=== PATIENT | male | born 1945 | race Caucasian/White ===

== ENCOUNTER → 2023-12-01 10:32 | Outpatient (REF) | payer MEDICARE, OTHER, SELFPAY | LOC: RAD 10:32 | PROVIDERS: ATTENDING PHYSICIAN Family Medicine | DX: U07.1 COVID-19 (principal) | CPT/HCPCS: 71046 ==

== ENCOUNTER → 2024-03-01 06:50 | Outpatient (REF) | payer MEDICARE, OTHER, SELFPAY | LOC: RAD 06:50 | PROVIDERS: ATTENDING PHYSICIAN Internal Medicine Cardiovascular Disease; FAMILY PHYSICIAN Family Medicine | DX: I48.0 Paroxysmal atrial fibrillation (principal); I70.0 Atherosclerosis of aorta | CPT/HCPCS: 76770 ==

== ENCOUNTER → 2024-03-10 07:40 | Outpatient (REF) | payer MEDICARE, OTHER, SELFPAY ==
[2024-03-10 08:41] LABS: % Basophils 1.1 % (0-2); % Eosinophils 4.6 % (0-6); % Immature Granulocytes 0.4 % (0-0.5); % Lymphocytes 16.8 % (20.5-51.1); % Monocytes 9.5 % (1.7-9.3); % Neutrophils 67.6 % (42.2-75.2); Absolute Basophils 0.1 10^3/uL (0-0.2); Absolute Eosinophils 0.5 10^3/uL (0-0.7); Absolute Lymphocytes 1.7 10^3/uL (1.2-3.4); Absolute Monocytes 0.9 10^3/uL (0.1-0.6); Absolute Neutrophils 6.7 10^3/uL (1.4-6.5); Hemoglobin 14.1 g/dL (13.0-18.0); Mean Corp Hgb Conc. 33.6 g/dL (33.0-37.0); Mean Corpuscular Hgb 31.5 pg (27.0-31.0); Mean Corpuscular Volume 93.8 fL (80.0-94.0); Mean Platelet Volume 8.8 fL (7.4-10.4); Nucleated Red Blood Cells % 0 % (-); Platelet Count 283 10^3/uL (130-400); Red Blood Cell Count 4.48 10^6/uL (4.70-6.10); Red Cell Dist. Width 13.2 % (11.5-14.5); White Blood Cell Count 9.9 10^3/uL (4.8-10.8)
[2024-03-10 09:10] LABS: NT-proBNP 6710 pg/ml
[2024-03-10 09:11] LABS: ALT (SGPT) 14 U/L (0-50); AST (SGOT) 23 U/L (17-59); Albumin 4.2 g/dl (3.5-5.0); Alkaline Phosphatase 75 U/L (38-126); Blood Urea Nitrogen 10 mg/dl (9-20); Calcium 9.4 mg/dl (8.4-10.2); Carbon Dioxide 25 mmol/L (22-30); Chloride 103 mmol/L (98-107); Glucose 119 mg/dl (70-99); HDL Cholesterol 43 mg/dl; LDL Cholesterol, Calculated 62 mg/dl; Magnesium 1.5 mg/dl (1.6-2.3); Potassium 4.1 mmol/L (3.5-5.1); Sodium 136 mmol/L (135-145); Total Bilirubin 0.9 mg/dl (0.2-1.3); Total Cholesterol 121 mg/dl (50-199); Total Protein 6.8 g/dl (6.3-8.2); Triglyceride 83 mg/dl (10-149); Very Low Density Lipoprotein 16 mg/dl (0-30); eGFR > 60.00
[2024-03-10 09:32] LABS: TSH Reflex To Free T4 3.84 uIU/ml (0.47-4.68)
[2024-03-10 12:02] LABS: Glycohemoglobin (HgbA1c) 6.2 % (4.0-5.6)
== END ==
LOC: REG 07:40
PROVIDERS: ATTENDING PHYSICIAN Internal Medicine Cardiovascular Disease; FAMILY PHYSICIAN Family Medicine
DX: I48.0 Paroxysmal atrial fibrillation (principal); I10 Essential (primary) hypertension; E87.1 Hypo-osmolality and hyponatremia; Z86.39 Personal history of other endocrine, nutritional and metabolic disease; E78.5 Hyperlipidemia, unspecified
CPT/HCPCS: 36415; 80053; 80061; 83036; 83735; 83880; 84443; 85025

== ENCOUNTER 2024-03-25 13:17 | Inpatient (IN) | payer MEDICARE, OTHER, SELFPAY ==
[2024-03-25] VITALS (12 sets, daily range): BP systolic 150–189; BP diastolic 66–108; BMI 28.3; BMI 26.4
[2024-03-25 11:05] LABS: % Basophils 0.7 % (0-2); % Eosinophils 2.1 % (0-6); % Immature Granulocytes 0.6 % (0-0.5); % Lymphocytes 8.3 % (20.5-51.1); % Monocytes 7.7 % (1.7-9.3); % Neutrophils 80.6 % (42.2-75.2); Absolute Basophils 0.1 10^3/uL (0-0.2); Absolute Eosinophils 0.2 10^3/uL (0-0.7); Absolute Immature Granulocytes 0.1 10^3/uL (0-0.05); Absolute Lymphocytes 0.9 10^3/uL (1.2-3.4); Absolute Monocytes 0.8 10^3/uL (0.1-0.6); Absolute Neutrophils 8.3 10^3/uL (1.4-6.5); Hematocrit 38.9 % (39.0-52.0); Hemoglobin 13.3 g/dL (13.0-18.0); Mean Corp Hgb Conc. 34.2 g/dL (33.0-37.0); Mean Corpuscular Hgb 32.2 pg (27.0-31.0); Mean Corpuscular Volume 94.2 fL (80.0-94.0); Mean Platelet Volume 9.7 fL (7.4-10.4); Nucleated Red Blood Cells % 0 % (-); Platelet Count 300 10^3/uL (130-400); Red Blood Cell Count 4.13 10^6/uL (4.70-6.10); Red Cell Dist. Width 13.2 % (11.5-14.5); White Blood Cell Count 10.3 10^3/uL (4.8-10.8)
[2024-03-25 11:09] LABS: INR 1.21; PT 15.2 Sec (11.4-14.6)
[2024-03-25 11:10] LABS: APTT 36.8 Sec (23.4-35.0)
[2024-03-25 11:17] LABS: ALT (SGPT) 20 U/L (0-50); AST (SGOT) 25 U/L (17-59); Albumin 3.9 g/dl (3.5-5.0); Alkaline Phosphatase 85 U/L (38-126); Blood Urea Nitrogen 9 mg/dl (9-20); Calcium 9.3 mg/dl (8.4-10.2); Carbon Dioxide 24 mmol/L (22-30); Chloride 100 mmol/L (98-107); Estimated Creatinine Clearance 105 ml/min; Glucose 225 mg/dl (70-99); Magnesium 1.3 mg/dl (1.6-2.3); Potassium 4.4 mmol/L (3.5-5.1); Sodium 136 mmol/L (135-145); Total Bilirubin 0.7 mg/dl (0.2-1.3); Total Protein 6.4 g/dl (6.3-8.2); eGFR > 60.00
[2024-03-25 11:29] LABS: NT-proBNP 2750 pg/ml; Troponin I < 0.012 ng/ml
[2024-03-25] MEDS: DUONEB 3 ML INH ×2 (11:37→17:30)
[2024-03-25 11:47] LABS: TSH 2.54 uIU/ml (0.47-4.68)
--- NOTE | 2024-03-25 11:51 | ED.GENMED ---
History of Present Illness
General
Chief Complaint: Breathing Problem
Source: patient, records, family and physician
Exam Limitations: none
Time Seen by Provider: 03/25/24 10:36
Nursing documentation reviewed up to this point in time: agreed with
Travel History
Have you had any contact with someone who has COVID-19?: No
Do you have any symptoms of coronavirus? Fever > 100 degrees, chills, cough, shortness of breath, sore throat, loss of taste or smell, muscle aches, or headache?: No
History of Present Illness
History of Present Illness:
78-year-old male history of PAF status post ablation on Xarelto beta-kat and calcium channel kat have both been held not on a diuretic ex-smoker does have a history of COPD presents with fatigue shortness of breath, pulse ox 91% heart rate
in the high 30s family spoke to geomorphology teacher referred to the ER for evaluation
Past History
Past History
ED Past Medical History: Arrthythmia (Paroxysmal atrial fibrillation), Cancer (Melanoma, prostate cancer), GERD, HTN, Hypercholesterolemia, NIDDM and Psychiatric (Anxiety)
ED Past Surgical History: Orthopedic, Urological (Prostatectomy) and Other (Left scapular back melanoma removal with left axillary sentinel node biopsy December 2018)
Social History
Tobacco: Former smoker
Alcohol: Daily
Drug: None
Personal:
Living: with family
Employment: Retired
Family History
Family History: CAD and Other (Father with a pacemaker)
Review of Systems
Review of Systems
All Other Systems: Not applicable
Constitutional: Denies fever or fatigue
Respiratory: Reports cough and trouble breathing
Cardiac: Reports no symptoms; Denies chest pain, diaphoresis or syncope
ABD/GI: Reports no symptoms
: Reports no symptoms
Musculoskeletal: Reports no symptoms
Skin: Reports no symptoms
Neurological: Reports weakness; Denies dizzy
Endocrine: Reports no symptoms
Hematologic/Lymphatic: Reports no symptoms
Psychiatric: Reports no symptoms
Phy Exam
Physical Exam
Physical Exam:
Physical Exam
General: Dyspneic appearing male
Neck: No jaundice
Heart: Slow and irregular
Lungs: Wheezing
Abdomen: Nontender
Neuro: alert and oriented. no focal neurological deficits
Skin: no rash
Psychiatric: well kept. interactive and cooperative
Extremities: Trace edema
Scores
Heart Failure Risk
Heart Failure Risk Score: Yes
History of Stroke or TIA: No
History of intubation for respiratory distress: No
Heart rate on ED arrival >/= 110: No
SaO2 <90% on arrival on room air: Yes
HR >/=110 during 3min walk test (or too ill to perform test): Yes
ECG has acute ischemic changes: No
Urea >/=12mmol/L (BUN 33.6mg/dL): No
Serum CO2>/=35mmol/L: No
Troponin I or T elevated to ME Level (0.4mg/dL): No
NT-proBNP >/=5,000ng/L (5,000pg/ml): No
HF Risk Score: 3
Admission Status: HIGH RISK 15.9% Consider SNF treatment or admission to hospital
Course
Orders/Labs/Results
Orders:
Orders
03/25/24 10:02
Electrocardiogram (*1) Urgent
Reason for Study: Shortness of Breath
EKG- Treatment ONCE
03/25/24 10:37
Cardiac Monitoring- Treatment ONCE
CR Chest Portable - 1 View Urgent
Comment:
Reason For Exam: sob
Reason Study Needs to be Portable: Patient Unstable
03/25/24 10:40
Complete Blood Count/With Diff Urgent
Comprehensive Metabolic Panel Urgent
Magnesium Urgent
NT-proBNP Urgent
PTT Urgent
Prothrombin Time Urgent
TSH Urgent
Troponin I Urgent
03/25/24 11:25
Ipratropium/Albuterol Sulfate [Duoneb] 3 ml INH R NOW STA
03/25/24 11:51
Furosemide [Lasix] 40 mg IV NOW STA
Abnormal Lab Results
03/25/24
10:40
RBC 4.13 L 10^6/uL
(4.70-6.10)
Hct 38.9 L %
(39.0-52.0)
MCV 94.2 H fL
(80.0-94.0)
MCH 32.2 H pg
(27.0-31.0)
Abs Immat Gran (auto) 0.1 H 10^3/uL
(0-0.05)
Absolute Neuts (auto) 8.3 H 10^3/uL
(1.4-6.5)
Absolute Lymphs (auto) 0.9 L 10^3/uL
(1.2-3.4)
Absolute Monos (auto) 0.8 H 10^3/uL
(0.1-0.6)
Immature Gran % 0.6 H %
(0-0.5)
Neutrophils % 80.6 H %
(42.2-75.2)
Lymphocytes % 8.3 L %
(20.5-51.1)
PT 15.2 H Sec
(11.4-14.6)
APTT 36.8 H Sec
(23.4-35.0)
Creatinine 0.6 L mg/dL
(0.7-1.3)
Glucose 225 H mg/dl
(70-99)
Magnesium 1.3 L mg/dl
(1.6-2.3)
03/25/24 10:40
03/25/24 10:40
Vital Signs
Initial and Last Documented VS:
Initial Vital Signs
Temp Pulse Resp BP Pulse Ox
97.7 F 49 16 181/74 91
03/25/24 10:08 03/25/24 10:08 03/25/24 10:08 03/25/24 10:08 03/25/24 10:08
Last Documented Vital Signs
Temp Pulse Resp BP Pulse Ox
97.7 F 78 18 178/108 97
03/25/24 10:08 03/25/24 10:18 03/25/24 10:18 03/25/24 10:16 03/25/24 10:34
*Critical Care Note
Total Time (30-74mins, 75-104mins- exclusive of procedures): Not Applicable
Update Note
Update Note:
Update patient wheezing bradycardic at home persistently bradycardic here treat with nebs, diuretic, he is off AV rima blocking agents, cardiology and hospitalist notified family updated
ED Attending Note
-
Portions of this chart may have been created with voice recognition software.� Occasional wrong word or��sound alike� substitutions may have occurred due to the inherent limitations of voice recognition software.
Discharge Plan
Departure
Patient Disposition: Admit
Date of Disposition: 03/25/24
Time of Disposition: 12:21
Admit to: Telemetry
Presentation/result/management discussed w/ accepting MD/DO: Hospitalist
Patient with high blood pressure during this ER visit?: Yes
Condition: Fair
Covid-19: Not Applicable
Discharge Problem:
PAF (paroxysmal atrial fibrillation), Bradycardia
Prescriptions:
No Action
losartan 50 MG tablet
100 mg PO DAILY@1200
nifedipine 30 MG tablet extended release
30 mg PO .QPM ON HOLD
omeprazole 40 MG capsule,delayed release(DR/EC)
40 mg PO DAILY@1200
ascorbic acid (vitamin C) [Vitamin C] 500 MG tablet
500 mg PO DAILY@1200
loratadine 10 MG tablet
10 mg PO DAILY
multivitamin with folic acid [Tab-A-Cortney] 1 TABLET tablet
1 tab PO DAILY
magnesium oxide 400 MG tablet
400 mg PO BID
metformin 500 MG tablet
1,000 mg PO BID@0800,1700
ferrous sulfate [iron] 325 MG tablet
325 mg PO MOWEFR@1200
cholecalciferol (vitamin D3) [Vitamin D3] 1,000 UNIT capsule
1,000 unit PO DAILY@1200
Xarelto 20 MG tablet
20 mg PO QPM
atorvastatin 40 MG tablet
40 mg PO HS Qty: 90 3RF
albuterol sulfate [Ventolin HFA] 90 MCG/PUFF HFA aerosol inhaler
1 puff inhalation R Q6HPRN PRN (Reason: sob)
Referrals:
Denys Olson MD [Family Provider] -
Interventions
Interventions:
*Risk Screen - Suicide Last Done: 03/25/24 10:35
*General Assessment Last Done: 03/25/24 10:35
*Neglect/Abuse Screening Last Done: 03/25/24 10:35
*ED COVID-19 Vaccine History Last Done: 03/25/24 10:08
ED- Cardiac Assessment Last Done: 03/25/24 10:37
ED- Pulmonary Assessment Last Done: 03/25/24 10:37
Discharge Date and Time
Print Language: UGANDAN
--- NOTE | 2024-03-25 12:10 | HPS.HSE ---
Addendum entered and electronically signed by Joel West MD 03/25/24 16:12:
I saw and examined the patient.
The CLINICAL PRODUCT MANAGER or PA's note was reviewed and I agree with the note.
Comment:
78M melanoma, Prostate ca, GERD, HTN, HLD, NIDDM, anxiety p/w progressive SOB past week. �Pulse ox was noted low 90s room air and heart rate was in 30s this morning prompting ED visit. Denied headache, dizziness, syncopal episode, chest/abd pain
palpitations, blurry vision, numbness, tingling. Patient reported abdominal bloating, distention, and belching for months. He had a colonoscopy 2 years ago which was reportedly clean. He was evaluated by upholstery repairer a week ago and told to
take Metamucil and probiotic. Saturation improved with low dose oxygen supplementation. HR 50s to 60s in ED. BP stable.� EKG noted Mobitz type I. Troponin neg. CXR suggestive mild CHF.� BNP 44651 significantly improved from prior value however. Mg
1.3
Physical Exam
General: No pallor, cyanosis, or jaundice.
HEENT: Throat clear. PERRLA Normocephalic atraumatic
NECK: Supple. No JVD Carotid Bruits
RESPIRATORY: Expiratory wheeze mild
CVS: Irregular irregular bradycardia no murmur, rub or gallop.
ABDOMEN: Soft, non-tender. �Distended. BS+/normal.
EXTREMITIES: No peripheral cyanosis or edema.
AMUSEMENT PARK ENTERTAINER: AOx3. No focal deficits.
#Bradycardia reports of HR 30s at home
#Mobitz type I
IVU , property assessment monitor
Cardio consult
Avoid av rima blocking agents
#Possible Heart Failure Exacerbation
Cardio consult appreciated cont IV Lasix
Check ECHO
Daily weights I/O
#Possible COPD exacerbation
#Acute Hypoxic Insufficiency/failure
scheduled Duonebs
wean O2 supplementation as tolerated
#Abd distension w/o tenderness Belching chronic for months
Check CT abd/pelvis
#Hypomagnesemia
Replete
Original Note:
Family Physician
-
Family Physician: Denys Olson
Chief Complaint
-
Short of breath
Bloating
History of Present Illness
78-year-old with past medical history for A-fib, melanoma, prostate cancer, GERD, hypertension, hyperlipidemia, diabetes, anxiety presented to us with short of breath. Patient complained of short of breath 2 days ago as well as he woke up with
short of breath this morning. His pulse ox was low 90s and heart rate was in 38. Patient denied any headache, dizziness or syncopal episode. Patient denied any chest pain. Patient denied any blurry vision, numbness, tingling. Patient is
complaining of abdominal bloating and belching, which has family is chronic. He had a colonoscopy 2 years ago which was clean. He was evaluated by upholstery repairer a week ago. He was told to take Metamucil and probiotic. Denied nausea,
vomiting, diarrhea. Patient denied dysuria hematuria. Patient denied any lower extremities edema. Patient denied any weight gain.
Patient was supplemental with 1 L of oxygen. On arrival his heart rate was in 50s. At present heart rate in 60s. Patient received dose of nebulizer treatment in ER. Patient also received a dose of Lasix in ER. Admitting for further management
Medical History
Past Medical History
Past Medical History: Reports Other
Additional Past Medical History:
Hypertension
PVC
Hypercholesteremia
Melanoma of troso
Iron deficiency anemia
History of colonic polyps
Diabetic peripheral neuropathy
Type 2 diabetes
Obstructive lung disease
Abdominal aortic aneurysm
Panlobular emphysema
Persistent A-fib
Past Surgical History: Reports Other
Additional Past Surgical History:
Melanoma excision
Knee surgery
Prostatectomy
Cardiac ablation
Social History
Tobacco: Former Smoker
Alcohol: Daily
Drug: None
Personal:
Living: With Family
Family History
Family History: Not pertinent
Allergies / Home Medications
Allergies reflects when Allergies were last updated in [facility].
Home Medications with original date entered in [facility]
Allergy/Medication List:
Allergies
Allergy/AdvReac Type Severity Reaction Status Date / Time
No Known Drug Allergies Allergy Unknown Verified 03/25/24 10:10
Home Medications
ascorbic acid (vitamin C) 500 mg tablet (Vitamin C) 500 mg PO DAILY@1200 12/31/18
loratadine 10 mg tablet 10 mg PO DAILY 12/31/18
losartan 50 mg tablet 100 mg PO DAILY@1200 12/31/18
multivitamin with folic acid 400 mcg tablet (Tab-A-Cortney) 1 tab PO DAILY 12/31/18
nifedipine 30 mg tablet,extended release 30 mg PO .QPM ON HOLD 12/31/18
omeprazole 40 mg capsule,delayed release 40 mg PO DAILY@1200 12/31/18
magnesium oxide 400 mg PO BID 04/08/21
cholecalciferol (vitamin D3) 25 mcg (1,000 unit) capsule (Vitamin D3) 1,000 unit PO DAILY@1200 04/23/21
ferrous sulfate 325 mg (65 mg iron) tablet (iron) 325 mg PO MOWEFR@1200 04/23/21
metformin 500 mg tablet 1,000 mg PO BID@0800,1700 04/23/21
rivaroxaban 20 mg tablet (Xarelto) 20 mg PO QPM 04/23/21
atorvastatin 40 mg tablet 40 mg PO HS #90 tabs 04/24/21
albuterol sulfate 90 mcg/actuation aerosol inhaler (Ventolin HFA) 1 puff inhalation R Q6HPRN PRN sob 03/25/24
Review of Systems
-
Constitutional: Reports No Symptoms
EENT: Reports No Symptoms
Respiratory: Reports Trouble Breathing
Cardiac: Reports No Symptoms
Abdomen/GI: Reports Other (Bloating and belching)
: Reports No Symptoms
Musculoskeletal: Reports No Symptoms
Skin: Reports No Symptoms
Neurological: Reports No Symptoms
Endocrine: Reports No Symptoms
Hematologic/Lymphatic: Reports No Symptoms
Psych: Reports No Symptoms
Physical Exam
Vital Signs
Vital Signs
Temp Pulse Resp BP Pulse Ox
97.7 F 78 18 178/108 97
03/25/24 10:08 03/25/24 10:18 03/25/24 10:18 03/25/24 10:16 03/25/24 10:34
Physical Exam
General: Well Developed, Well Nourished and No Apparent Distress
HEENT: NormoCephalic, Moist mucous membranes and Atraumatic
Respiratory: Decreased Breath Sounds
Cardiac: S1/S2 and Regular Rhythm; No Murmur or Rub
GI: Soft, Non Tender, Non Distended and Normal Bowel Sounds; No Organomegaly
Rectal: Deferred by Provider
Musculoskeletal: No Clubbing, No Cyanosis and No Edema
Skin: No Rash
Neuro: AO x 3 and Nonfocal/grossly intact
Psych: Calm
Laboratory Results
-
03/25/24 10:40
03/25/24 10:40
Laboratory Results
PT 15.2 Sec (11.4-14.6) H 03/25/24 10:40
INR 1.21 03/25/24 10:40
APTT 36.8 Sec (23.4-35.0) H 03/25/24 10:40
Total Bilirubin 0.7 mg/dl (0.2-1.3) 03/25/24 10:40
AST 25 U/L (17-59) 03/25/24 10:40
ALT 20 U/L (0-50) 03/25/24 10:40
Alkaline Phosphatase 85 U/L (38-126) 03/25/24 10:40
Troponin I < 0.012 ng/ml 03/25/24 10:40
Data Reviewed
-
Lab Data: Labs Reviewed by me
Impression/Plan
-
# Short of breath /acute hypoxia multifactorial
-Patient requiring 1 L of oxygen
-Continue supplemental oxygen to keep sat in the 92
-Wean as tolerated
CHF exacerbation
-BNP 2750
-Chest x-ray Prominent pulmonary vascularity suggesting mild CHF.
-Received a dose of Lasix in ER
-Strict PRISCILLA
-Daily weight
-defer diuretics to cardiology
-Obtain echo
#possible COPD exacerbation
-nebs prn continued
-wheezing on auscultation
#abdominal bloating and belching unclear cause
-will obtain CT of abdomen pelvis
-ctm
# Paroxysmal A-fib
-Heart rate low 60s
-History of cardioversion, cardiac ablation in the past
-Cardiology consulted
-EKG with sinus rhythm with Mobitz 1 block
-Xarelto continued
# Hypomagnesemia
-Mag 1.3
-Oral mag in ER
# Hypertension urgency
-Blood pressure elevated in ER
-Losartan continued
-Gave a dose of losartan in ER
# Hyperlipidemia
-Statin continued
# Iron deficiency anemia
-Ferrous sulfate continued
# Type 2 diabetes
-Hold metformin
-Sliding scale
-Daily BGM
-CHO diet
# GERD
-PPI continued
# DVT prophylaxis
-On Xarelto
# CODE STATUS
-Full code
[2024-03-25] MEDS: LASIX 40 MG IV (12:14)
[2024-03-25] MEDS: COZAAR 100 MG PO (14:12)
[2024-03-25] MEDS: OMNIPAQUE 50 ML PO (14:12)
[2024-03-25] MEDS: MAGNESIUM OXIDE 500 MG PO (14:12)
--- NOTE | 2024-03-25 14:12 | CON.CAR ---
Addendum entered and electronically signed by Arnold Rockwell DO 03/25/24 16:27:
I saw and examined the patient.
The Corridor Redevelopment Manager's note was reviewed and I agree with the note.
Comment:
GENERAL: no acute distress
EYE: sclera anicteric
NECK: Supple, no JVD, no carotid bruit appreciated
ENT: normal nose, moist mucosal membranes
CARDIAC: Regular rate and rhythm, +S1/S2, no murmur, rubs, or gallops
CHEST/PULMONARY: Normal effort, bibasilar crackles, faint expiratory wheeze, on nasal cannula
ABDOMEN: Soft, without focal tenderness or distention
NEUROLOGICAL: Alert and oriented x3
SKIN: Warm and dry, no rash
PSYCH: Normal and appropriate interaction.
Assessment and plan as below
Hold AV rima blocking agents
IV diuresis monitor renal function electrolytes
Daily weights/intake and outputs
Monitor on telemetry appears sinus rhythm with second-degree type I no clear evidence of high degree block at this time
Continue oral anticoagulation for AF/stroke risk
Original Note:
Consultation
Consultation Request
Date/Time Consultation Performed: 03/25/24
Requesting Provider: Dr. Hobson
Performing Provider: Christi Veloz PA-C for Dr. Rockwell
Reason for Consultation: bradycardia, SOB
Medical History
-
Chief Complaint: SOB, HR in 30s by home BP cuff
History of Present Illness:
Patient is an 78 yo M with PMH of paroxysmal afib and aflutter s/p PVI 10/2019 and redo PVI and RFA 03/2021, pulm HTN by echo 03/2022 with improvement by echo 08/2022, PVCs, HLD, CAD, DM2, COPD, pulmonary nodules who presents to [facility] due to SOB and
bradycardia with HR in 30s by home BP monitor. He states he has noted BERNAL over the last several days. He has history of bradycardia and SSS, and had been taken off his BB/CCB due to this. On presentation to ER felt to be in [facility] with HRs in
60-70s. Noted to have proBNP of 2750 and CXR with evidence of CHF. Cardiology consulted for evaulation. Denies lower extremity edema or orthopnea. Reports some feelings of abdominal bloating. Not on diuretic prior to admission
PMH:
Bradycardia/sick sinus syndrome
Paroxysmal atrial fibrillation and atrial flutter status post PVI 10/2019 and redo PVI/RFA 03/2021
Chronic anticoagulation with Xarelto
Pulmonary hypertension by echo 03/2022 with improvement by echo 08/2022
PVCs
Hyperlipidemia
CAD
Diabetes type 2
COPD
History of pulmonary nodules
History of prostate cancer
Past Medical History
Past Medical History: Other (in HPI)
Social History
Tobacco: Former Smoker
Personal:
Living: With Family
Employment: Retired
Allergies / Home Medications
Allergy/AdvReac Type Severity Reaction Status Date / Time
No Known Drug Allergies Allergy Unknown Verified 03/25/24 10:10
�Medication �Instructions �Recorded �Confirmed �Type
ascorbic acid (vitamin C) 500 mg 500 mg PO DAILY@1200 12/31/18 03/25/24 History
tablet (Vitamin C)
loratadine 10 mg tablet 10 mg PO DAILY 12/31/18 03/25/24 History
losartan 50 mg tablet 100 mg PO DAILY@1200 12/31/18 03/25/24 History
multivitamin with folic acid 400 1 tab PO DAILY 12/31/18 03/25/24 History
mcg tablet (Tab-A-Cortney)
nifedipine 30 mg tablet,extended 30 mg PO .QPM ON HOLD 12/31/18 03/25/24 History
release
omeprazole 40 mg capsule,delayed 40 mg PO DAILY@1200 12/31/18 03/25/24 History
release
magnesium oxide 400 mg PO BID 04/08/21 03/25/24 History
cholecalciferol (vitamin D3) 25 1,000 unit PO DAILY@1200 04/23/21 03/25/24 History
mcg (1,000 unit) capsule (Vitamin
D3)
ferrous sulfate 325 mg (65 mg 325 mg PO MOWEFR@1200 04/23/21 03/25/24 History
iron) tablet (iron)
metformin 500 mg tablet 1,000 mg PO BID@0800,1700 04/23/21 03/25/24 History
rivaroxaban 20 mg tablet (Xarelto) 20 mg PO QPM 04/23/21 03/25/24 History
atorvastatin 40 mg tablet 40 mg PO HS #90 tabs 04/24/21 03/25/24 Rx
albuterol sulfate 90 mcg/actuation 1 puff inhalation R Q6HPRN PRN sob 03/25/24 03/25/24 History
aerosol inhaler (Ventolin HFA)
Review of Systems
-
History Source: Patient and Family
All other systems: Negative unless noted
Physical Exam
Vital Signs
Temp Pulse Resp BP Pulse Ox
97.7 F 59 19 163/73 96
03/25/24 10:08 03/25/24 13:00 03/25/24 13:00 03/25/24 13:00 03/25/24 13:00
Lab Results
03/25/24 10:40
03/25/24 10:40
Troponin I < 0.012 ng/ml 03/25/24 10:40
[id number] Pept 2750 pg/ml 03/25/24 10:40
Physical Exam
General: No Apparent Distress, Comfortable and Other (on supp O2)
HEENT: Normocephalic, Anicteric and Moist Mucous Membranes
Respiratory: Crackles (B/L bases) and Non Labored Respirations
Cardiac: S1/S2 and Regular Rhythm
GI: Soft, Non Tender, Normal Bowel Sounds and Distended (mild)
Musculoskeletal: No Clubbing, No Cyanosis and No Edema
Skin: Warm and Dry
Neuro: AO x 3
Impression / Plan
-
Primary Chlorine Cell Tender: Dr. Puente
Assessment:
Presentation with SOB, bradycardia
Acute CHF, presumed diastolic
Wenckebach
Bradycardia/sick sinus syndrome
Paroxysmal atrial fibrillation and atrial flutter status post PVI 10/2019 and redo PVI/RFA 03/2021
Chronic anticoagulation with Xarelto
Pulmonary hypertension by echo 03/2022 with improvement by echo 08/2022
PVCs
Hyperlipidemia
CAD
Diabetes type 2
COPD
History of pulmonary nodules
History of prostate cancer
ECHO 08/2022: EF 55 to 60%, mild concentric LVH, MAC, mild MR, mild TR, PAP 41 mmHg, mild pulmonary hypertension
Plan:
-Patient presents with shortness of breath and bradycardia.
-He has history of bradycardia and presumed sick sinus syndrome and was recently taken off of his beta-kat and calcium channel kat as an outpatient due to this. He was getting heart rates in the 30s by his home blood pressure cuff. In the
ER, EKG felt to be most consistent with Wenckebach. Heart rates presently in 60s to 70s. No evidence of high-grade AV block at this time. Will follow on telemetry. Discussed no urgent indication for pacemaker, however may require at some point
if higher grade av block noted
-Continue to avoid AV rima blocking agents
-TSH WNL
-IV Lasix diuresis. Responding well to dose given in ER thus far. Creatinine 1.3, follow. Was not on diuretic prior to admission
-CHF education
-Wean supplemental oxygen as able
-Repeat echo, last from 08/2022 with results as above
-trop negative x1
-Discussed with ER physician. Discussed with patient and multiple family members at bedside. Discussed with primary aeronautical products sales engineer
Data Reviewed
-
EKG: Tracing Personally Visualized and interpreted
Radiology: Report Reviewed by me
Medical Tests (Nuc Med, Echo etc): Report Reviewed by me
Labs: Labs Reviewed by me
Old Records: Reviewed
[2024-03-25] MEDS: DUONEB INH (17:38)
[2024-03-25] MEDS: MAGNESIUM SULFATE 50 IV (17:40)
--- NOTE | 2024-03-25 17:48 | PTCARENOTE ---
received pt from ED. pt is GORDO, SR on the monitor with PVCs. Pt oriented to unit. pt educated on plan of care for the evening and pt verbalized understanding. call ramos within reach.
[2024-03-25] MEDS: APRESOLINE 5 MG IV (18:20)
[2024-03-25 18:36] LABS: Glucose - Point of Care 120 mg/dl (70-99)
[2024-03-25] MEDS: NOVOLOG FLEXPEN-MODERATE RESISTANCE SC (18:48)
--- NOTE | 2024-03-25 19:11 | PTCARENOTE ---
Pt BP 176/66, notified dr. jacobs ordered hydralazine, given as ordered. pt c/o feeling anxious, dr. jacobs ordered Ativan, pt agreeable to taking before bed. pt is resting in bed comfortably. call ramos within reach.
[2024-03-25] MEDS: XARELTO 20 MG PO (19:23)
[2024-03-25 22:15] LABS: Glucose - Point of Care 122 mg/dl (70-99)
[2024-03-25] MEDS: MAG-TAB SR 84 MG PO (22:31)
[2024-03-25] MEDS: MYLICON 80 MG PO (22:31)
[2024-03-25] MEDS: ATIVAN 0.25 MG PO (22:31)
[2024-03-25] MEDS: LIPITOR 40 MG PO (22:31)
[2024-03-26] VITALS (9 sets, daily range): BP systolic 115–162; BP diastolic 53–80; PULSE 78; O2SAT 94; BMI 26.0
[2024-03-26 04:46] LABS: Hematocrit 39.1 % (39.0-52.0); Hemoglobin 13.9 g/dL (13.0-18.0); Mean Corp Hgb Conc. 35.5 g/dL (33.0-37.0); Mean Corpuscular Hgb 31.7 pg (27.0-31.0); Mean Corpuscular Volume 89.1 fL (80.0-94.0); Mean Platelet Volume 8.5 fL (7.4-10.4); Platelet Count 295 10^3/uL (130-400); Red Blood Cell Count 4.39 10^6/uL (4.70-6.10); Red Cell Dist. Width 13.1 % (11.5-14.5); White Blood Cell Count 9.3 10^3/uL (4.8-10.8)
[2024-03-26 05:20] LABS: ALT (SGPT) 19 U/L (0-50); AST (SGOT) 24 U/L (17-59); Albumin 4.1 g/dl (3.5-5.0); Alkaline Phosphatase 91 U/L (38-126); Blood Urea Nitrogen 9 mg/dl (9-20); Calcium 9.6 mg/dl (8.4-10.2); Carbon Dioxide 26 mmol/L (22-30); Chloride 99 mmol/L (98-107); Direct Bilirubin 0.4 mg/dl (0.0-0.4); Estimated Creatinine Clearance 105 ml/min; Glucose 118 mg/dl (70-99); HDL Cholesterol 38 mg/dl; LDL Cholesterol, Calculated 51 mg/dl; Magnesium 1.8 mg/dl (1.6-2.3); Potassium 3.9 mmol/L (3.5-5.1); Sodium 135 mmol/L (135-145); Total Bilirubin 1.2 mg/dl (0.2-1.3); Total Cholesterol 107 mg/dl (50-199); Total Protein 6.6 g/dl (6.3-8.2); Triglyceride 92 mg/dl (10-149); Very Low Density Lipoprotein 18 mg/dl (0-30); eGFR > 60.00
[2024-03-26] MEDS: DUONEB 3 ML INH ×4 (07:45→19:18)
--- NOTE | 2024-03-26 08:24 | W.PN.HOSP.TC ---
Today's Communication/Plan
-
cont lasix as per cardio
cont monitoring analyst
glycemic control
monitor and replete electrolytes
blood pressure control
Assessment / Plan
Assessment / Plan
Physical Exam
General: No pallor, cyanosis, or jaundice.
HEENT: Throat clear. PERRLA Normocephalic atraumatic
NECK: Supple. No JVD Carotid Bruits
RESPIRATORY: clear to auscultation
CVS: regular rate rhythm no murmur, rub or gallop.
ABDOMEN: Soft, non-tender. �Distended. BS+/normal.
EXTREMITIES: No peripheral cyanosis or edema.
SERVICE STATION CASHIER: AOx3. No focal deficits.
78M melanoma, Prostate ca, GERD, HTN, HLD, NIDDM, anxiety p/w progressive SOB past week. �Pulse ox was noted low 90s room air and heart rate was in 30s this morning prompting ED visit. Denied headache, dizziness, syncopal episode, chest/abd pain
palpitations, blurry vision, numbness, tingling. Patient reported abdominal bloating, distention, and belching for months. He had a colonoscopy 2 years ago which was reportedly clean. He was evaluated by steam setter a week ago and told to
take Metamucil and probiotic. Saturation improved with low dose oxygen supplementation. HR 50s to 60s in ED. BP stable.� EKG noted Mobitz type I. Troponin neg. CXR suggestive mild CHF.� BNP 30964 significantly improved from prior value however. Mg
1.3
# Short of breath /acute hypoxia multifactorial
-weaned off to room air
CHF exacerbation
-BNP 2750
-Chest x-ray Prominent pulmonary vascularity suggesting mild CHF.
-Received a dose of Lasix in ER
-Strict I/O
-Daily weight
-ECHO appreciated EF 50% mild to mod MR, mild to mod TR, moderate pulm htn no significant changes noted to prior ECHO 2021
-Cardio eval appreciated IV lasix 40 mg daily
#possible COPD exacerbation
-treated with scheduled Duonebs, wheezing since resolved weaned off oxygen supplementation to room air
-discontinued scheduled, cont prn
#abdominal bloating and belching unclear cause
simethicone prn
CT abd/pelvis appreciated
1. Mild colonic distention without evidence for obstruction or acute colitis.
2. Severe diverticulosis in the sigmoid colon.
3. Severe calcific atherosclerotic plaque in the abdominal aorta, iliac, and femoral arteries.
4. Fusiform infrarenal abdominal aortic aneurysm (2.4 cm AP dimension).
5. Mild to moderate chronic bilateral renal disease.
6. Mild passive hepatic venous congestion in the liver.
7. Previous prostatectomy.
8. Mild acute interstitial cardiogenic pulmonary edema.
9. Small bilateral pleural effusions.
10. Mild cardiomegaly.
11. 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
# Paroxysmal A-fib
#Bradycardia 30s reported at home
-Heart rate low 60s
-History of cardioversion, cardiac ablation in the past
-Cardiology consult appreciated
-EKG with sinus rhythm with Mobitz 1 block
-Xarelto continued
-avoid av rima blocking agents
# Hypomagnesemia
-Monitor and replete as necessary
# Hypertension urgency
#HTN
cont home losartan with holding parameters
hydralazine prn
# Hyperlipidemia
-Statin continued
# Iron deficiency anemia
-Ferrous sulfate continued
# Type 2 diabetes
-Hold metformin
-Sliding scale
-Daily BGM
-CHO diet
# GERD
-PPI continued
# DVT prophylaxis
-On Xarelto
# CODE STATUS
-Full code
I spent a total of 55 minutes with the patient or on the floor. More than 50% of this time involved counseling and coordination of care.
Anticipated Discharge: 24 - 48 hours
Subjective/Interval History
-
Date of Service: March 26, 2024
Appears significantly improved weaned off oxygen supplementation. Reports overall feeling well. present during evaluation.
Objective Data
-
Labs:
Laboratory Results
03/26/24
04:31
WBC 9.3
Hgb 13.9
Hct 39.1
Plt Count 295
Sodium 135
Potassium 3.9
Chloride 99
Carbon Dioxide 26
BUN 9
Creatinine 0.5 L
Glucose 118 H
Calcium 9.6
Total Bilirubin 1.2
AST 24
ALT 19
Alkaline Phosphatase 91
Vital Signs:
Vital Signs
Temp Pulse Resp BP Pulse Ox
98.4 F 63 16 157/80 94
03/26/24 07:08 03/26/24 07:47 03/26/24 07:47 03/26/24 04:25 03/26/24 07:08
I&O
03/25/24 03/26/24 03/27/24
06:59 06:59 06:59
Intake Total 480 / 480
Output Total 3400 / 3400
Balance -2920 / -2920
[2024-03-26 08:33] LABS: Glucose - Point of Care 129 mg/dl (70-99)
[2024-03-26] MEDS: MYLICON 80 MG PO ×2 (08:36→16:35)
[2024-03-26] MEDS: LASIX 40 MG IV (08:36)
[2024-03-26] MEDS: MAG-TAB SR 84 MG PO ×2 (08:36→20:22)
[2024-03-26] MEDS: NOVOLOG FLEXPEN-MODERATE RESISTANCE SC ×2 (08:41→17:36)
--- NOTE | 2024-03-26 09:04 | W.PN.CARDCBS ---
Addendum entered and electronically signed by Roberto Garcia MD 03/26/24 09:49:
I saw and examined the patient.
The Security Guards Dispatcher's note was reviewed and I agree with the note.
Comment: GEN: No distress, awake, Ox3
HEENT: supple, anicteric, mmm
LUNGS: CTA, no wheezes/rales
CV: Reg with ectopy, S1/S2, 10/31 syst LSB, no gallop
ABD: soft, BS+, NT/ND
EXT: No edema
NEURO: Gross non-focal
SKIN: No rash
PLan:
Telemetry is overall stable. Still gets intermittent episodes of second-degree AV block. Check EKG today. Overall heart rate though is improved in the 60 to 80 bpm range.
His AV rima blockers were recently discontinued. Will hold off on permanent pacing for now.
Continue IV Lasix 40 mg daily. Would likely switch to oral Lasix in a.m.
Continue Xarelto.
If no further events on telemetry and clinically improved would likely be ok for discharge on 03/27/2024. Will need outpatient monitor.
Original Note:
Today's Communication / Plan
-
Continue IV lasix, likely close to transitioning to PO
Follow on telemetry. No high grade AV block seen.
Avoid AV rima blockers
Impression / Plan
-
Primary Folder Machine Adjuster: Dr. Puente
Assessment:
Presentation with SOB, bradycardia
Acute HFpEF
Wenckebach
Bradycardia/sick sinus syndrome
Paroxysmal atrial fibrillation and atrial flutter status post PVI 10/2019 and redo PVI/RFA 03/2021
Chronic anticoagulation with Xarelto
Pulmonary hypertension by echo 03/2022 with improvement by echo 08/2022
PVCs
Hyperlipidemia
CAD
Diabetes type 2
COPD
History of pulmonary nodules
History of prostate cancer
ECHO 08/2022: EF 55 to 60%, mild concentric LVH, MAC, mild MR, mild TR, PAP 41 mmHg, mild pulmonary hypertension
Echo 03/25/2024: EF 50%, mild-moderate MR, mild-moderate TR, estimated PAP 53 mmHg
Plan:
-Patient presented with shortness of breath and bradycardia.
-Recently taken off beta kat and calcium channel kat. Despite this, was reportedly still having bradycardia at home with HRs in the 30s.
-EKG in ER consistent with Welyric. HRs have been stable this admission w/ no evidence of high grade AV block at this time.
-Continue to follow on telemetry. Discussed no urgent indication for pacemaker, however may require at some point if higher grade av block noted
-Continue to avoid AV rima blocking agents
-TSH WNL
-Also w/ evidence of acute heart failure. Diuresing with IV lasix 40mg daily. Creat 0.5. Not on diuretic prior to admission.
-Appears to be improving from a volume standpoint. Weight down 2lbs. Likely can transition to PO lasix in AM
-CHF education
-Follow up arranged.
Progress Note - Folder Machine Adjuster
Subjective
Date of Service: March 26, 2024
No complaints this morning other than bloating and belching.
Objective
Labs:
03/26/24 04:31
03/26/24 04:31
Labs
Hgb 13.9 g/dL (13.0-18.0) 03/26/24 04:31
Hct 39.1 % (39.0-52.0) 03/26/24 04:31
Plt Count 295 10^3/uL (130-400) 03/26/24 04:31
PT 15.2 Sec (11.4-14.6) H 03/25/24 10:40
INR 1.21 03/25/24 10:40
APTT 36.8 Sec (23.4-35.0) H 03/25/24 10:40
Sodium 135 mmol/L (135-145) 03/26/24 04:31
Potassium 3.9 mmol/L (3.5-5.1) 03/26/24 04:31
BUN 9 mg/dl (9-20) 03/26/24 04:31
Creatinine 0.5 mg/dL (0.7-1.3) L 03/26/24 04:31
Glucose 118 mg/dl (70-99) H 03/26/24 04:31
Troponins
03/25/24
10:40
Troponin I < 0.012
Vital Signs and I&O:
Vital Signs
Temp Pulse Resp BP Pulse Ox
98.4 F 73 16 150/74 94
03/26/24 07:08 03/26/24 08:36 03/26/24 07:47 03/26/24 08:36 03/26/24 07:08
Vital Signs
Temp Pulse Resp BP Pulse Ox
98.4 F 73 16 150/74 94
03/26/24 07:08 03/26/24 08:36 03/26/24 07:47 03/26/24 08:36 03/26/24 07:08
Intake & Output
03/24/24 03/25/24 03/26/24 03/27/24
06:59 06:59 06:59 06:59
Intake Total 480 / 480
Output Total 3400 / 3400
Balance -2920 / -2920
Physical Exam
Physical Exam
GEN: No distress, awake, alert, oriented x3
HEENT: supple, anicteric, mmm
LUNGS: CTA b/l, no wheezes/rales
CV: Irreg, S1/S2, 1/6 syst murmur
EXT: No clubbing, cyanosis, or edema
NEURO: Gross non-focal
SKIN: Warm, dry, no rash
[2024-03-26 12:25] LABS: Glucose - Point of Care 175 mg/dl (70-99)
[2024-03-26] MEDS: NOVOLOG FLEXPEN-MODERATE RESISTANCE 1 UNITS SC (13:13)
[2024-03-26] MEDS: COZAAR 100 MG PO (13:13)
[2024-03-26] MEDS: PROTONIX 40 MG PO (13:14)
[2024-03-26] MEDS: VITAMIN D3 (cholecalciferol) 25 MCG PO (13:14)
[2024-03-26] MEDS: XARELTO 20 MG PO (16:35)
[2024-03-26 17:01] LABS: Glucose - Point of Care 131 mg/dl (70-99)
--- NOTE | 2024-03-26 17:47 | PTCARENOTE ---
pt is sr/sb on the monitor with PVCs, HR in the 60s. pt offers no complaints except for bloating, Mylicon given as ordered see MAR. Pt has been ambulating the halls throughout the day with family. pt educated on plan of care for the evening and pt
verbalized understanding. call ramos within reach.
[2024-03-26] MEDS: LIPITOR 40 MG PO (20:22)
[2024-03-26 21:23] LABS: Glucose - Point of Care 220 mg/dl (70-99)
[2024-03-27 02:20] VITALS: BP 123/73
[2024-03-27 02:35] LABS: Hematocrit 37.1 % (39.0-52.0); Hemoglobin 13.6 g/dL (13.0-18.0); Mean Corp Hgb Conc. 36.7 g/dL (33.0-37.0); Mean Corpuscular Hgb 32.2 pg (27.0-31.0); Mean Corpuscular Volume 87.9 fL (80.0-94.0); Mean Platelet Volume 8.5 fL (7.4-10.4); Platelet Count 309 10^3/uL (130-400); Red Blood Cell Count 4.22 10^6/uL (4.70-6.10); Red Cell Dist. Width 13.2 % (11.5-14.5); White Blood Cell Count 9.4 10^3/uL (4.8-10.8)
[2024-03-27 03:00] LABS: Carbon Dioxide 24 mmol/L (22-30); Estimated Creatinine Clearance 90 ml/min; Magnesium 1.8 mg/dl (1.6-2.3); Phosphorus 5.8 mg/dl (2.5-4.5); eGFR > 60.00
[2024-03-27 03:09] LABS: Blood Urea Nitrogen 16 mg/dl (9-20); Chloride 99 mmol/L (98-107); Glucose 140 mg/dl (70-99); Sodium 134 mmol/L (135-145)
[2024-03-27 06:00] VITALS: BMI 25.9
--- NOTE | 2024-03-27 07:58 | W.PN.HOSP.TC ---
Today's Communication/Plan
-
discharge
Assessment / Plan
Assessment / Plan
Physical Exam
General: No pallor, cyanosis, or jaundice.
HEENT: Throat clear. PERRLA Normocephalic atraumatic
NECK: Supple. No JVD Carotid Bruits
RESPIRATORY: clear to auscultation
CVS: regular rate rhythm no murmur, rub or gallop.
ABDOMEN: Soft, non-tender. �Distended. BS+/normal.
EXTREMITIES: No peripheral cyanosis or edema.
DIET TECH: AOx3. No focal deficits.
78M melanoma, Prostate ca, GERD, HTN, HLD, NIDDM, anxiety p/w progressive SOB past week. �Pulse ox was noted low 90s room air and heart rate was in 30s this morning prompting ED visit. Denied headache, dizziness, syncopal episode, chest/abd pain
palpitations, blurry vision, numbness, tingling. Patient reported abdominal bloating, distention, and belching for months. He had a colonoscopy 2 years ago which was reportedly clean. He was evaluated by medical photographer a week ago and told to
take Metamucil and probiotic. Saturation improved with low dose oxygen supplementation. HR 50s to 60s in ED. BP stable.� EKG noted Mobitz type I. Troponin neg. CXR suggestive mild CHF.� BNP 81289 significantly improved from prior value however. Mg
1.3
# Short of breath /acute hypoxia multifactorial
-weaned off to room air
CHF exacerbation
-BNP 2750
-Chest x-ray Prominent pulmonary vascularity suggesting mild CHF.
-Received a dose of Lasix in ER
-Strict I/O
-Daily weight
-ECHO appreciated EF 50% mild to mod MR, mild to mod TR, moderate pulm htn no significant changes noted to prior ECHO 2021
-Cardio eval appreciated IV lasix 40 mg daily to transition to PO lasix 20 mg daily, patient cleared for discharge with outpatient follow up recommendations.
#possible COPD exacerbation
-treated with scheduled Duonebs, wheezing since resolved weaned off oxygen supplementation to room air
-discontinued scheduled, cont prn
#abdominal bloating and belching unclear cause
simethicone prn
CT abd/pelvis appreciated
1. Mild colonic distention without evidence for obstruction or acute colitis.
2. Severe diverticulosis in the sigmoid colon.
3. Severe calcific atherosclerotic plaque in the abdominal aorta, iliac, and femoral arteries.
4. Fusiform infrarenal abdominal aortic aneurysm (2.4 cm AP dimension).
5. Mild to moderate chronic bilateral renal disease.
6. Mild passive hepatic venous congestion in the liver.
7. Previous prostatectomy.
8. Mild acute interstitial cardiogenic pulmonary edema.
9. Small bilateral pleural effusions.
10. Mild cardiomegaly.
11. 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
# Paroxysmal A-fib
#Bradycardia 30s reported at home
-Heart rate since improved 50s to 70s
-History of cardioversion, cardiac ablation in the past
-Cardiology consult appreciated
-EKG with sinus rhythm with Mobitz 1 block
-Xarelto continued
-avoid av rima blocking agents
# Hypomagnesemia
-Monitor and replete as necessary
# Hypertension urgency resolved
#HTN
cont home losartan with holding parameters
hydralazine prn
# Hyperlipidemia
-Statin continued
# Iron deficiency anemia
-Ferrous sulfate continued
# Type 2 diabetes
-Hold metformin
-Sliding scale
-Daily BGM
-CHO diet
# GERD
-PPI continued
# DVT prophylaxis
-On Xarelto
# CODE STATUS
-Full code
Medically stable for discharge home with outpatient follow up recommendations.
Discussed with patient and patient's Adina
Total Time Preparing Discharge ___50____ minutes including examination of the patient, summary of the hospital stay, instructions for continuing care to all relevant caregivers; and preparation of discharge records, prescriptions, and referral
forms if necessary.
Anticipated Discharge: Today
Subjective/Interval History
-
Date of Service: March 27, 2024
Seen and examined at bedside in no acute distress resting comfortably in bed. Denies new acute issues. Reports overall feeling well. Eager to go home. present during evaluation.
Objective Data
-
Labs:
Laboratory Results
03/27/24
02:25
WBC 9.4
Hgb 13.6
Hct 37.1 L
Plt Count 309
Sodium 134 L
Potassium 4.0
Chloride 99
Carbon Dioxide 24
BUN 16
Creatinine 0.7
Glucose 140 H
Calcium 10.0
Vital Signs:
Vital Signs
Temp Pulse Resp BP Pulse Ox
97.9 F 59 18 115/53 94
03/26/24 22:50 03/26/24 22:48 03/26/24 22:50 03/26/24 22:48 03/26/24 22:50
I&O
03/26/24 03/27/24 03/28/24
06:59 06:59 06:59
Intake Total 480 / 480 480 / 480
Output Total 3400 / 3400
Balance -2920 / -2920 480 / 480
[2024-03-27 08:40] VITALS: BP 140/90
[2024-03-27 08:40] LABS: Glucose - Point of Care 135 mg/dl (70-99)
--- NOTE | 2024-03-27 08:41 | W.PN.CARDCBS ---
Today's Communication / Plan
-
Has diuresed well. Will switch to Lasix 20 mg daily
Telemetry overall stable with no clear need for pacemaker at this time.
Will arrange outpatient monitor.
Continue Xarelto
Okay for discharge from cardiac standpoint
Impression / Plan
-
Primary Network Announcer: Dr. Puente
Assessment:
Presentation with SOB, bradycardia
Acute HFpEF
Wenckebach
Bradycardia/sick sinus syndrome
Paroxysmal atrial fibrillation and atrial flutter status post PVI 10/2019 and redo PVI/RFA 03/2021
Chronic anticoagulation with Xarelto
Pulmonary hypertension by echo 03/2022 with improvement by echo 08/2022
PVCs
Hyperlipidemia
CAD
Diabetes type 2
COPD
History of pulmonary nodules
History of prostate cancer
ECHO 08/2022: EF 55 to 60%, mild concentric LVH, MAC, mild MR, mild TR, PAP 41 mmHg, mild pulmonary hypertension
Echo 03/25/2024: EF 50%, mild-moderate MR, mild-moderate TR, estimated PAP 53 mmHg
Plan:
-Telemetry with sinus rhythm with intermittent episodes of Wenkebach. Heart rates overall improved. Will arrange outpatient monitor but no clear need for pacemaker now.
-He has diuresed well and weight is down significantly. Will switch to Lasix 20 mg daily as outpatient.
-Continue to avoid AV rima blocking agents
-Continue losartan. Blood pressure stable
-TSH WNL
-CHF education
-Follow up arranged.
Progress Note - Network Announcer
Subjective
Date of Service: March 27, 2024
Feels well and breathing is improved. No dizziness or lightheadedness
Objective
Labs:
03/27/24 02:25
03/27/24 02:25
Labs
Hgb 13.6 g/dL (13.0-18.0) 03/27/24 02:25
Hct 37.1 % (39.0-52.0) L 03/27/24 02:25
Plt Count 309 10^3/uL (130-400) 03/27/24 02:25
PT 15.2 Sec (11.4-14.6) H 03/25/24 10:40
INR 1.21 03/25/24 10:40
APTT 36.8 Sec (23.4-35.0) H 03/25/24 10:40
Sodium 134 mmol/L (135-145) L 03/27/24 02:25
Potassium 4.0 mmol/L (3.5-5.1) 03/27/24 02:25
BUN 16 mg/dl (9-20) 03/27/24 02:25
Creatinine 0.7 mg/dL (0.7-1.3) 03/27/24 02:25
Glucose 140 mg/dl (70-99) H 03/27/24 02:25
Troponins
03/25/24
10:40
Troponin I < 0.012
Vital Signs and I&O:
Vital Signs
Temp Pulse Resp BP Pulse Ox
97.9 F 59 18 115/53 94
03/26/24 22:50 03/26/24 22:48 03/26/24 22:50 03/26/24 22:48 03/26/24 22:50
Vital Signs
Temp Pulse Resp BP Pulse Ox
97.9 F 59 18 115/53 94
03/26/24 22:50 03/26/24 22:48 03/26/24 22:50 03/26/24 22:48 03/26/24 22:50
Intake & Output
03/25/24 03/26/24 03/27/24 03/28/24
06:59 06:59 06:59 06:59
Intake Total 480 / 480 480 / 480
Output Total 3400 / 3400
Balance -2920 / -2920 480 / 480
Physical Exam
Physical Exam
GEN: No distress, awake, Ox3
HEENT: supple, anicteric, mmm
LUNGS: CTA, no wheezes/rales
CV: Reg with ectopy, S1/S2, 1/6 syst LSB, no gallop
ABD: soft, BS+, NT/ND
EXT: No edema
NEURO: Gross non-focal
SKIN: No rash
[2024-03-27] MEDS: NOVOLOG FLEXPEN-MODERATE RESISTANCE SC ×2 (08:47→12:35)
[2024-03-27] MEDS: LASIX IV (09:21)
[2024-03-27] MEDS: MAG-TAB SR 84 MG PO (10:11)
[2024-03-27] MEDS: LASIX 20 MG PO (10:11)
--- NOTE | 2024-03-27 12:33 | W.DCSUMMARY ---
Discharge Summary
Discharge Data
Date of Admission: 03/25/24
Date of Discharge: 03/27/24
-
Pending Results: No
Hospital Course
78M melanoma, Prostate ca, GERD, HTN, HLD, NIDDM, anxiety p/w progressive SOB past week. �Pulse ox was noted low 90s room air and heart rate was in 30s prompting ED visit. Denied headache, dizziness, syncopal episode, chest/abd pain palpitations,
blurry vision, numbness, tingling. Patient reported abdominal bloating, distention, and belching for months. He had a colonoscopy 2 years ago which was reportedly clean. He was evaluated by slat basket maker machine a week ago and told to take Metamucil
and probiotic. Saturation improved with low dose oxygen supplementation. HR 50s to 60s in ED. BP stable.� EKG noted Mobitz type I. Troponin neg. CXR suggestive mild CHF.� BNP 52529 significantly improved from prior value however. Hypomagnesemia Mg
1.3. Short of breath /acute hypoxia multifactorial, weaned off to room air. CHF exacerbation, received a dose of Lasix in ER. ECHO appreciated EF 50% mild to mod MR, mild to mod TR, moderate pulm htn no significant changes noted to prior ECHO
2021. Cardio eval appreciated, IV lasix 40 mg daily was eventually transitioned to PO lasix [address] abd/pelvis Noted:
1. Mild colonic distention without evidence for obstruction or acute colitis.
2. Severe diverticulosis in the sigmoid colon.
3. Severe calcific atherosclerotic plaque in the abdominal aorta, iliac, and femoral arteries.
4. Fusiform infrarenal abdominal aortic aneurysm (2.4 cm AP dimension).
5. Mild to moderate chronic bilateral renal disease.
6. Mild passive hepatic venous congestion in the liver.
7. Previous prostatectomy.
8. Mild acute interstitial cardiogenic pulmonary edema.
9. Small bilateral pleural effusions.
10. Mild cardiomegaly.
11. 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
Paroxysmal A-fib, Bradycardia 30s reported at home, Heart rate since improved 50s to 70s since admission and hold home Procardia (since discontinued). Xarelto continued, it was recommended to avoid av rima blocking agents. Hypomagnesemia was
repleted. Medically stable, patient was discharged home with outpatient follow up recommendations.
Discharge Plan
-
Patient Disposition: Home (Routine Discharge)
Discharge Diagnosis/Procedures: Acute Heart Failure with Preserved Ejection Fraction
Wenckebach/Bradycardia/sick sinus syndrome
Paroxysmal atrial fibrillation and atrial flutter
Pulmonary hypertension
Hyperlipidemia
CAD
Diabetes type 2
Hypertension
COPD
History of pulmonary nodules
History of prostate cancer
Diverticulosis
Abdomen Aortic Aneurysm 2.4 cm
Chronic Ankylosing Spondylitis
Hypomagnesemia resolved
Condition: Fair
Diet: Diabetic, Carb Controlled
Activity: As tolerated
Driving Restrictions: As prior to admission
Bathing Restrictions: None
Blood Work: Please repeat BMP with primary care provider or cardiology in 1 week of discharge
Others Tests: Follow up with Cardiology for outpatient monitor and storage bin tender
Specialty Instructions: Weigh Daily- Call MD for wt gain/loss 3 lbs overnight/5 lbs in 1 week
Activity Restrictions/Additional Instructions:
Please keep your appointment with Cardiology and follow up with primary care provider in 1 week of discharge.
Home Medications
ascorbic acid (vitamin C) 500 mg tablet (Vitamin C) 500 mg PO DAILY@1200 Supplement
loratadine 10 mg tablet 10 mg PO DAILY Allergies
losartan 50 mg tablet 100 mg PO DAILY@1200 Blood Pressure
multivitamin with folic acid 400 mcg tablet (Tab-A-Cortney) 1 tab PO DAILY Supplement
omeprazole 40 mg capsule,delayed release 40 mg PO DAILY@1200 Gastrointestinal Issue
magnesium oxide 400 mg PO BID Electrolyte Repletion
cholecalciferol (vitamin D3) 25 mcg (1,000 unit) capsule (Vitamin D3) 1,000 unit PO DAILY@1200 Supplement
ferrous sulfate 325 mg (65 mg iron) tablet (iron) 325 mg PO MOWEFR@1200 Supplement
metformin 500 mg tablet 1,000 mg PO BID@0800,1700 Diabetes
rivaroxaban 20 mg tablet (Xarelto) 20 mg PO QPM Stroke risk reduction afib
albuterol sulfate 90 mcg/actuation aerosol inhaler (Ventolin HFA) 1 puff inhalation R Q6HPRN PRN shortness of breath
atorvastatin 40 mg tablet 40 mg PO HS High Cholesterol
New prescription furosemide tablet 20 mg PO DAILY for treatment heart failure with preserved ejection fraction.
Home nifedipine has been discontinued due to severe bradycardia.
Please take medications as prescribed/recommended and follow up with primary care provider and/or other healthcare provider involved in your care for refills and/or further adjustment to your medication regimen as necessary.
Instructions: Heart Failure, Adult (DC)
Referrals:
Denys Olson MD [Family Provider] - in one week
Erum Puente DO [Active] - 04/01/24 11:20 am (You have a follow up visit with Dr. Puente at the [place] office. Please call with questions. )
Prescriptions:
New
furosemide 20 mg Tablet
20 mg PO DAILY 30 Days Qty: 30 0RF
Continued
losartan 50 MG tablet
100 mg PO DAILY@1200
omeprazole 40 MG capsule,delayed release(/EC)
40 mg PO DAILY@1200
ascorbic acid (vitamin C) [Vitamin C] 500 MG tablet
500 mg PO DAILY@1200
loratadine 10 MG tablet
10 mg PO DAILY
multivitamin with folic acid [Tab-A-Cortney] 1 TABLET tablet
1 tab PO DAILY
magnesium oxide 400 MG tablet
400 mg PO BID
metformin 500 MG tablet
1,000 mg PO BID@0800,1700
ferrous sulfate [iron] 325 MG tablet
325 mg PO MOWEFR@1200
cholecalciferol (vitamin D3) [Vitamin D3] 1,000 UNIT capsule
1,000 unit PO DAILY@1200
Xarelto 20 MG tablet
20 mg PO QPM
albuterol sulfate [Ventolin HFA] 90 MCG/PUFF HFA aerosol inhaler
1 puff inhalation R Q6HPRN PRN (Reason: shortness of breath)
atorvastatin 40 MG tablet
40 mg PO HS
Discontinued
nifedipine 30 MG tablet extended release
30 mg PO .QPM ON HOLD
Discharge Orders:
Discharge Patient (As Directed); Ordered 03/27/24
Ordered By: Joel West
Care Plan Goals
Care Plan Goals:
Problem: Readiness for enhanced knowledge related to diagnosis and treatment plan
Goal: Understand your diagnosis and treatment plan needs, including medications if applicable.
Instructions: Know your diagnosis, underlying causes and treatment plan options, including medications if applicable. Consult with your health care team to learn about your diagnosis and treatment plan, including medications if applicable.
Discharge Date and Time
Discharge Date/Time: 03/27/24 13:18
Print Language: ARMENIAN
[2024-03-27 12:35] VITALS: BP 139/73
[2024-03-27] MEDS: COZAAR 100 MG PO (12:35)
[2024-03-27] MEDS: PROTONIX 40 MG PO (12:35)
[2024-03-27] MEDS: VITAMIN D3 (cholecalciferol) 25 MCG PO (12:35)
--- NOTE | 2024-03-27 13:16 | PTCARENOTE ---
read d/c instructions to pt and , both verbalized understanding. iv and tele removed. pt left with belongings from room and educational packets. pt left via wheelchair with staff.
== END 2024-03-27 13:18 | disposition home or self-care (01) | DRG 291 ==
LOC: IVU 13:17
PROVIDERS: Registered Nurse; ADMITTING PHYSICIAN Internal Medicine; EMERGENCY PHYSICIAN Emergency Medicine; FAMILY PHYSICIAN Family Medicine; OTHER PHYSICIAN Internal Medicine Cardiovascular Disease
DX: I11.0 Hypertensive heart disease with heart failure (principal); I50.33 Acute on chronic diastolic (congestive) heart failure; I48.92 Unspecified atrial flutter; J44.1 Chronic obstructive pulmonary disease with (acute) exacerbation; K21.9 Gastro-esophageal reflux disease without esophagitis; E78.00 Pure hypercholesterolemia, unspecified; F41.9 Anxiety disorder, unspecified; I44.1 Atrioventricular block, second degree; E83.42 Hypomagnesemia; E11.42 Type 2 diabetes mellitus with diabetic polyneuropathy; J43.1 Panlobular emphysema; I16.0 Hypertensive urgency; D50.9 Iron deficiency anemia, unspecified; I27.20 Pulmonary hypertension, unspecified; I25.10 Atherosclerotic heart disease of native coronary artery without angina pectoris; I49.5 Sick sinus syndrome; I48.0 Paroxysmal atrial fibrillation; R91.8 Other nonspecific abnormal finding of lung field; M45.9 Ankylosing spondylitis of unspecified sites in spine; I71.43 Infrarenal abdominal aortic aneurysm, without rupture; I08.1 Rheumatic disorders of both mitral and tricuspid valves; R09.02 Hypoxemia; Z79.01 Long term (current) use of anticoagulants; Z79.899 Other long term (current) drug therapy; Z82.49 Family history of ischemic heart disease and other diseases of the circulatory system; Z85.46 Personal history of malignant neoplasm of prostate; Z87.891 Personal history of nicotine dependence
CPT/HCPCS: 71045; 74177; 80048; 80053; 80061; 82248; 82962; 83735; 83880; 84100; 84443; 84484; 85025; 85027; 85610; 85730; 93005; 93306; 94640; 96374; 97161; 99285; Q9967

== ENCOUNTER 2024-04-20 11:46 | Day surgery (SDC) | payer MEDICARE, OTHER, SELFPAY ==
[2024-04-20] VITALS (17 sets, daily range): BP systolic 102–165; BP diastolic 55–90; BMI 27.4
[2024-04-20 12:51] LABS: Glucose - Point of Care 111 mg/dl (70-99)
--- NOTE | 2024-04-20 16:02 | ITS.CL.PACE ---
Soda Room Operator - Pacemaker Implant
Pacemaker Implant
Procedure Report:
Primary Care Doctor: Denys Olson MD
Primary Floor Covering Installer: Erum Puente DO
Procedure Date: 04/20/2024
Name of procedure:
1. Placement of a dual-chamber pacemaker with left bundle area pacing lead for conduction system pacing
2. Subclavian venography
History:
1. Patient is a pleasant 78 year old male with a past medical history of PAF, sick sinus syndrome with symptomatic bradycardia and pauses (>5 seconds), pHTN, HTN, PVC, hyponatremia, DM2, CAD, dyslipidemia, BREANNA, COPD, AAA.
2. Please refer to H&P for complete history.
Indication:
Symptomatic irreversible bradycardia
Sick sinus syndrome
Tachybrady syndrome
Methods:
After informed consent was obtained, the patient was brought to the EP laboratory in a postabsorptive, nonsedated state. Peripheral IV access was established. Prophylactic antibiotics were administered prior to incision. Continuous ECG, blood
pressure, and pulse oximetry were initiated. Cardioversion patch electrodes were placed on the patient's chest and back. A grounding patch was applied to the skin. Sedation was administered by anesthesia services.
In order to define the extrathoracic portion of the subclavian vein and exclude significant venous obstruction or anomalous anatomy, subclavian venography was performed prior to the procedure. Using the patient's left peripheral IV, contrast was
injected and images were recorded. The left subclavian vein and SVC were found to be widely patent.
The left chest was prepared and draped in a sterile fashion. A time-out was performed. Local anesthesia was injected in the subcutaneous tissue in the infraclavicular area. An incision was made medial to the deltopectoral groove. The subcutaneous
tissue was dissected the level of the prepectoral fascia. A subcutaneous pocket was created. Under fluoroscopic guidance and with the assistance of the images from the venogram, 2 separate venipunctures were made using micropuncture and modified
Seldinger technique. These were performed in the extrathoracic portion of the subclavian vein. Guidewires were passed and two peel-away sheaths were placed, and used to advance leads into the circulation.
Under fluoroscopic guidance, the RA lead was advanced in the RVOT and ventricular ectopy was recorded. Images were taken in the BACON and SERBIAN views to ensure appropriate lead placement. Lead was subsequently positioned in the RV septum with adequate
sensing and pacing parameters. This was performed temporarily in the setting of complete heart block as our attention was turned to placement of the left bundle area pacing lead.
Fluoroscopy was used to determine likely anatomic site for left bundle branch pacing. The Matomy Markettronic C315 sheath was used to deliver the Medtronic 3830 Selectsecure pacing lead with the helix exposed just exposed from the sheath tip during continuous
monitoring when pacemapping the septum during gentle clockwise rotation to obtain a paced QRS morphology of a W pattern in lead V1. Once the suspected optimal site was identified, lead deployment was performed with several rapid rotations as paced
QRS morphology was intermittently monitored until a paced QRS complex in lead V1 demonstrated development of an R wave (qR or rSR). Unipolar pacing impedance dropped by approximately 100-200 ohms suggesting it had reached the left ventricular
subendocardial. Stable VEgm injury current is present throughout lead position and at end of case. Final unipolar pacing impedance is 1100 Ohms. Unipolar pacing threshold is stable at 0.75 V @ 0.4 ms. The patient had pre-existing narrow QRS. Final
conduction system paced QRS complex duration is 101 ms, LVAT is 97 ms, and peak V5 -> peak V1 timing is 39 ms. The C315 sheath was slit under fluoroscopy ensuring lead position and stability.
Next, the right atrial lead was positioned in the right atrial appendage. Adequate sensing and impedance parameters were found (pacing not performed for threshold testing due to AF), and no diaphragmatic stimulation was seen with high-output
pacing. Both sheaths were split, and the leads were secured to the fascia with Ethibond ties.
The pocket was flushed with antibiotic solution and hemostasis was assured. The generator was connected to the leads and placed inside the pocket. The device was sutured to the fascia. Surgiflo was applied. The wound was closed with 3 running
layers of absorbable suture, and steri-strips were applied. Dressing applied over steri-strips in standard fashion.
Following the procedure, the patient was taken to the recovery area in stable condition. A chest x-ray to be obtained post procedure as routine.
Lead parameters and device programming:
- RA Lead (Medtronic, Model 5076, #[id number]): Sensing 1.5 mV, Pacing threshold AF, Imp 703 Ohm
- RV Lead (Medtronic, Model 3830, #[id number]): Sensing 8.6 mV, Pacing threshold 0.75 V at 0.4 ms, Imp 646 Ohm
- Device: Medtronic, Model W1DR01 pacemaker (#[id number]), programmed AAIR-DDDR 60-130 ppm, mode switch on
Conclusions:
1. Successful placement of a dual-chamber pacemaker with conduction system pacing (LBBAP)
2. Subclavian venography
Recommendations:
1. Admit
2. Portable chest x-ray.
3. IV antibiotics while the patient is admitted.
4. OK to resume home medications as indicated; if site is stable in AM, ok to resume OAC in PM
5. Pressure dressing to be removed in AM, aquacell to remain until wound check
6. Follow-up will be arranged in the office in 7-10 days post-discharge
Arnold Rockwell DO
Clinical Cardiac Electrical Engineer
cc: Denys Olson MD; Erum Puente DO
--- NOTE | 2024-04-20 18:18 | PTCARENOTE ---
Pt received s/p PPM placement. AAOx3. Vpaced on global technical writer. HR 60s. SaO2 97% on room air. VSS. EKG completed. LCW pressure dressing CDI. L arm immobilizer on. Pt education provided about activity restrictions for L arm. PPM settings DDDR
60-130. Pt resting in bed, call ramos within reach.
[2024-04-20 18:40] LABS: Glucose - Point of Care 130 mg/dl (70-99)
[2024-04-20] MEDS: MAG-TAB SR 84 MG PO (19:01)
--- NOTE | 2024-04-20 21:15 | PTCARENOTE ---
Pt received start of shift, HR V-paced w/ underlying afib. L arm immobilizer on. L upper chest pressure dressing CDI over aquacel dressing. Pt AAOx3. Pt ambulated to bathroom and back to bed w/ standby assist - gait slightly unsteady due to
immobilizer. Pt denies any pain or SOB. Informed to notify RN if any changes, call ramos within reach.
[2024-04-20] MEDS: ANCEF 5 IV (22:04)
[2024-04-20] MEDS: LIPITOR 40 MG PO (22:04)
[2024-04-21 02:14] VITALS: BP 157/81
[2024-04-21 02:31] LABS: Hematocrit 42.3 % (39.0-52.0); Hemoglobin 15.2 g/dL (13.0-18.0); Mean Corp Hgb Conc. 35.9 g/dL (33.0-37.0); Mean Corpuscular Hgb 31.9 pg (27.0-31.0); Mean Corpuscular Volume 88.9 fL (80.0-94.0); Mean Platelet Volume 8.6 fL (7.4-10.4); Platelet Count 296 10^3/uL (130-400); Red Blood Cell Count 4.76 10^6/uL (4.70-6.10); Red Cell Dist. Width 12.8 % (11.5-14.5); White Blood Cell Count 9.1 10^3/uL (4.8-10.8)
[2024-04-21 02:39] VITALS: BMI 26.6
[2024-04-21 02:48] LABS: Blood Urea Nitrogen 16 mg/dl (9-20); Calcium 9.8 mg/dl (8.4-10.2); Carbon Dioxide 24 mmol/L (22-30); Chloride 99 mmol/L (98-107); Estimated Creatinine Clearance 87 ml/min; Glucose 147 mg/dl (70-99); Magnesium 2.2 mg/dl (1.6-2.3); Potassium 4.5 mmol/L (3.5-5.1); Sodium 137 mmol/L (135-145); eGFR > 60.00
[2024-04-21] MEDS: ANCEF 5 IV (05:59)
[2024-04-21 07:26] VITALS: BP 145/100
[2024-04-21 07:28] VITALS: BP 159/84
[2024-04-21] MEDS: LASIX 20 MG PO (08:30)
[2024-04-21] MEDS: FARXIGA 10 MG PO (08:30)
[2024-04-21] MEDS: PAXIL 10 MG PO (08:30)
[2024-04-21] MEDS: CLARITIN 10 MG PO (08:30)
[2024-04-21] MEDS: MAG-TAB SR 84 MG PO (08:30)
--- NOTE | 2024-04-21 09:00 | CM ---
Reviewed chart. Met with Mr. Davenport to review discharge plans. He states prior to admission he resides with his spouse in a two story home without any steps to enter. He states he has a first floor set-up. He states prior to admission he was
independent with ambulation and adls. He states he does not have any DME in the home. He states he has a prescription plan. The discharge plan is to return home with his spouse when medically stable.
--- NOTE | 2024-04-21 09:28 | W.PN.CARDCBS ---
Today's Communication / Plan
-
post DC PPM
stable for d/c home
Impression / Plan
-
Primary Care Doctor: Denys Olson MD
Primary Personal Development Educator: Erum Puente DO
Impression:
SSS/Symptomatic bradycardia
post DC PPM 04/20/24
PAF/Aflutter post ablation 2019
HLD
DM2
CAD
COPD
Prostate cancer
chronic HFpEF
HTN
GERD
Pulmonary nodules
Anxiety
Plan:
post device site stable with some old drainage
tele Vpaced
CXR no PTX
Will resume OAC Xarelto tonight
HF continue losartan, Lasix, Farxiga, t/c BB initiation as outpt
Activity restrictions reviewed
inc check 1 week
home today
Progress Note - Personal Development Educator
Subjective
Date of Service: April 21, 2024
no cp, sob, mild inc pain
Objective
Labs:
04/21/24 02:19
04/21/24 02:19
Labs
Hgb 15.2 g/dL (13.0-18.0) 04/21/24 02:19
Hct 42.3 % (39.0-52.0) 04/21/24 02:19
Plt Count 296 10^3/uL (130-400) 04/21/24 02:19
Sodium 137 mmol/L (135-145) 04/21/24 02:19
Potassium 4.5 mmol/L (3.5-5.1) 04/21/24 02:19
BUN 16 mg/dl (9-20) 04/21/24 02:19
Creatinine 0.7 mg/dL (0.7-1.3) 04/21/24 02:19
Glucose 147 mg/dl (70-99) H 04/21/24 02:19
Vital Signs and I&O:
Vital Signs
Temp Pulse Resp BP Pulse Ox
97.4 F 60 18 159/84 95
04/21/24 07:29 04/21/24 08:30 04/21/24 07:29 04/21/24 08:30 04/21/24 07:29
Vital Signs
Temp Pulse Resp BP Pulse Ox
97.4 F 60 18 159/84 95
04/21/24 07:29 04/21/24 08:30 04/21/24 07:29 04/21/24 08:30 04/21/24 07:29
Intake & Output
04/19/24 04/20/24 04/21/24 04/22/24
06:59 06:59 06:59 06:59
Output Total 400 / 400
Balance -400 / -400
Physical Exam
Physical Exam
NAD< AOX3
S1, S2, RRR
CTAB, non labored
SNTND Bsx4
L CW dressing c/d/i, small area of old drainage marked, pressure dressing removed
--- NOTE | 2024-04-21 10:00 | PTCARENOTE ---
Assumed care of patient at 0645. Assessment completed and documented in shift assessment.
Patient is s/p L CW Permanent Pacemaker, yesterday. V-paced on the monitor. Presently comfortable and will be discharged later this morning. Aquacel dressing with marked spot of drainage, however is old.
[2024-04-21 11:14] VITALS: BP 132/66
[2024-04-21] MEDS: COZAAR 100 MG PO (11:19)
[2024-04-21] MEDS: PROTONIX 40 MG PO (11:19)
--- NOTE | 2024-04-21 11:45 | PTCARENOTE ---
Patient written for discharge. Removed IV and Telemetry Pack. Went over discharge instructions with patient. Answered any questions he or his spouse had. Assisted out to chair in wheelchair.
--- NOTE | 2024-04-21 12:08 | W.DS.TRANS ---
DC Summary - Supervisor Fine Grading
-
Discharge Instructions:
Discharge Diagnosis/Procedures Pacemaker implant
Diet Low Cholesterol
Driving Restrictions No driving for 1 week
Bathing Restrictions OK to Shower
Instructions:
Stand-Alone Forms: DC Inst - Implanted Device
Changes to Home Medications: No
Discharge Medications:
DC Medications w/original date entered in [facility] [employer]
ascorbic acid (vitamin C) 500 mg tablet (Vitamin C) 500 mg PO DAILY@1200 Supplement 12/31/18
loratadine 10 mg tablet 10 mg PO DAILY Allergies 12/31/18
losartan 50 mg tablet 100 mg PO DAILY@1200 Blood Pressure 12/31/18
multivitamin with folic acid 400 mcg tablet (Tab-A-Cortney) 1 tab PO DAILY Supplement 12/31/18
omeprazole 40 mg capsule,delayed release 40 mg PO DAILY@1200 Gastrointestinal Issue 12/31/18
magnesium oxide 400 mg PO BID Electrolyte Repletion 04/08/21
cholecalciferol (vitamin D3) 25 mcg (1,000 unit) capsule (Vitamin D3) 1,000 unit PO DAILY@1200 Supplement 04/23/21
ferrous sulfate 325 mg (65 mg iron) tablet (iron) 325 mg PO MOWEFR@1200 Supplement 04/23/21
metformin 500 mg tablet 1,000 mg PO BID@0800,1700 Diabetes 04/23/21
rivaroxaban 20 mg tablet (Xarelto) 20 mg PO QPM Blood Clot Prevention/Tx 04/23/21
albuterol sulfate 90 mcg/actuation aerosol inhaler (Ventolin HFA) 1 puff inhalation R Q6HPRN PRN shortness of breath 03/25/24
atorvastatin 40 mg tablet 40 mg PO HS High Cholesterol 03/25/24
furosemide 20 mg tablet 20 mg PO DAILY 30 days #30 tabs 03/27/24
dapagliflozin propanediol 10 mg tablet (Farxiga) 10 mg PO DAILY 04/20/24
paroxetine HCl 10 mg tablet 10 mg PO DAILY 04/20/24
Home Medication Changes
Pending Results: No
== END 2024-04-21 11:48 | disposition home or self-care (01) ==
LOC: CATH 11:46
PROVIDERS: Nurse Practitioner Adult Health; ATTENDING PHYSICIAN Internal Medicine Cardiovascular Disease; FAMILY PHYSICIAN Family Medicine; OTHER PHYSICIAN Internal Medicine Cardiovascular Disease
DX: I49.5 Sick sinus syndrome (principal); I48.0 Paroxysmal atrial fibrillation; R00.1 Bradycardia, unspecified; I25.10 Atherosclerotic heart disease of native coronary artery without angina pectoris; I11.0 Hypertensive heart disease with heart failure; I50.32 Chronic diastolic (congestive) heart failure; E78.5 Hyperlipidemia, unspecified; E11.9 Type 2 diabetes mellitus without complications; G47.33 Obstructive sleep apnea (adult) (pediatric); J44.9 Chronic obstructive pulmonary disease, unspecified; I27.20 Pulmonary hypertension, unspecified; Z85.46 Personal history of malignant neoplasm of prostate; Z79.84 Long term (current) use of oral hypoglycemic drugs; Z79.01 Long term (current) use of anticoagulants
CPT/HCPCS: 33208; C1769; C1892; C1887; 71045; 80048; 82962; 83735; 85027; 93005; C1785; C1898; Q9967

== ENCOUNTER → 2024-06-10 09:45 | Day surgery (SDC) | payer MEDICARE, OTHER, SELFPAY ==
[2024-06-10 11:58] VITALS: BMI 27.0
--- NOTE | 2024-06-10 18:14 | ITS.CL.CARDI ---
Ehs Teacher - Cardioversion
Cardioversion
Procedure Report:
Date of Procedure: 06/10/2024
Procedure: Cardioversion
Indication: Symptomatic atrial fibrillation
Performing Physician: Erum Puente DO [facility]
Anticoagulation: Xarelto
Device: Medtronic dual-chamber pacemaker; Medtronic automotive sales representative interrogated device before and after procedure
Technique: The patient was brought to the holding area. Signed informed consent was obtained. A time out was called and performed. The patient was anesthetized by the anesthesia service. Anticoagulation status was reviewed and appropriate. R2 pads
were placed anteriorly and posteriorly. A 200 J synchronized biphasic shock restored atrial paced rhythm confirmed by device interrogation and twelve-lead EKG. There were no complications.
Conclusion: Uncomplicated cardioversion from atrial fibrillation to atrial paced rhythm.
Recommendation: Routine post cardioversion care. Continue data abstractor anticoagulation. Will start metoprolol succinate 25 mg once daily and amiodarone 200 mg once daily. Outpatient cardiac follow-up arranged.
== END ==
LOC: CATH 09:45
PROVIDERS: ATTENDING PHYSICIAN Internal Medicine Cardiovascular Disease; FAMILY PHYSICIAN Family Medicine
DX: I48.0 Paroxysmal atrial fibrillation (principal); I11.0 Hypertensive heart disease with heart failure; I50.32 Chronic diastolic (congestive) heart failure; I25.10 Atherosclerotic heart disease of native coronary artery without angina pectoris; E78.00 Pure hypercholesterolemia, unspecified; E11.9 Type 2 diabetes mellitus without complications; K21.9 Gastro-esophageal reflux disease without esophagitis; G47.33 Obstructive sleep apnea (adult) (pediatric); Z85.46 Personal history of malignant neoplasm of prostate; Z85.820 Personal history of malignant melanoma of skin; Z87.891 Personal history of nicotine dependence; Z79.84 Long term (current) use of oral hypoglycemic drugs; Z79.01 Long term (current) use of anticoagulants
CPT/HCPCS: 92960; 93005

== ENCOUNTER → 2024-09-07 12:37 | Outpatient (REF) | payer MEDICARE, OTHER, SELFPAY | LOC: REG 12:37 | PROVIDERS: ATTENDING PHYSICIAN Specialist; FAMILY PHYSICIAN Family Medicine | DX: C61 Malignant neoplasm of prostate (principal) | CPT/HCPCS: 36415; 84153 ==

== ENCOUNTER → 2024-09-12 10:45 | Outpatient (REF) | payer MEDICARE, OTHER, SELFPAY ==
[2024-09-12 12:27] LABS: Blood Urea Nitrogen 20 mg/dl (9-20)
== END ==
LOC: REG 10:45
PROVIDERS: ATTENDING PHYSICIAN Surgery; FAMILY PHYSICIAN Family Medicine
DX: C43.59 Malignant melanoma of other part of trunk (principal)
CPT/HCPCS: 36415; 82565; 84520

== ENCOUNTER → 2024-09-13 08:48 | Outpatient (REF) | payer MEDICARE, OTHER, SELFPAY | LOC: RAD 08:48 | PROVIDERS: ATTENDING PHYSICIAN Surgery; FAMILY PHYSICIAN Family Medicine | DX: C43.59 Malignant melanoma of other part of trunk (principal) | CPT/HCPCS: 71260; 74177; Q9967 ==

== ENCOUNTER → 2024-09-28 08:36 | Outpatient (REF) | payer MEDICARE, OTHER, SELFPAY ==
[2024-09-28 12:01] LABS: PSA, Total - Diagnostic 0.19 ng/ml (0.0-4.0)
== END ==
LOC: REG 08:36
PROVIDERS: ATTENDING PHYSICIAN Specialist; FAMILY PHYSICIAN Family Medicine
DX: R97.21 Rising PSA following treatment for malignant neoplasm of prostate (principal)
CPT/HCPCS: 36415; 84153

== ENCOUNTER → 2025-01-11 08:45 | Outpatient (REF) | payer MEDICARE, OTHER, SELFPAY ==
[2025-01-11 09:28] LABS: % Basophils 1.2 % (0-2); % Eosinophils 3.2 % (0-6); % Immature Granulocytes 0.5 % (0-0.5); % Lymphocytes 20.1 % (20.5-51.1); % Monocytes 8.4 % (1.7-9.3); % Neutrophils 66.6 % (42.2-75.2); Absolute Basophils 0.1 10^3/uL (0-0.2); Absolute Eosinophils 0.3 10^3/uL (0-0.7); Absolute Lymphocytes 1.6 10^3/uL (1.2-3.4); Absolute Monocytes 0.7 10^3/uL (0.1-0.6); Absolute Neutrophils 5.4 10^3/uL (1.4-6.5); Hematocrit 43.4 % (39.0-52.0); Hemoglobin 14.4 g/dL (13.0-18.0); Mean Corp Hgb Conc. 33.2 g/dL (33.0-37.0); Mean Corpuscular Hgb 32.2 pg (27.0-31.0); Mean Corpuscular Volume 97.1 fL (80.0-94.0); Mean Platelet Volume 9.3 fL (7.4-10.4); Nucleated Red Blood Cells % 0 % (-); Platelet Count 253 10^3/uL (130-400); Red Blood Cell Count 4.47 10^6/uL (4.70-6.10); Red Cell Dist. Width 14.6 % (11.5-14.5); White Blood Cell Count 8.1 10^3/uL (4.8-10.8)
[2025-01-11 09:40] LABS: NT-proBNP 1580 pg/ml
[2025-01-11 13:07] LABS: Free T4 0.34 ng/dl (0.78-2.19)
[2025-01-11 13:16] LABS: ALT (SGPT) 47 U/L (0-50); AST (SGOT) 50 U/L (17-59); Albumin 5.1 g/dl (3.5-5.0); Alkaline Phosphatase 103 U/L (38-126); Blood Urea Nitrogen 19 mg/dl (9-20); Calcium 9.7 mg/dl (8.4-10.2); Carbon Dioxide 21 mmol/L (22-30); Chloride 101 mmol/L (98-107); Glucose 128 mg/dl (70-99); HDL Cholesterol 58 mg/dl; LDL Cholesterol, Calculated 71 mg/dl; Magnesium 1.5 mg/dl (1.6-2.3); Potassium 4.4 mmol/L (3.5-5.1); Sodium 138 mmol/L (135-145); Total Bilirubin 0.8 mg/dl (0.2-1.3); Total Cholesterol 150 mg/dl (50-199); Triglyceride 109 mg/dl (10-149); Very Low Density Lipoprotein 21 mg/dl (0-30); eGFR > 60.00
== END ==
LOC: REG 08:45
PROVIDERS: ATTENDING PHYSICIAN Internal Medicine Cardiovascular Disease; FAMILY PHYSICIAN Family Medicine
DX: I10 Essential (primary) hypertension (principal)
CPT/HCPCS: 36415; 80053; 80061; 83735; 83880; 84439; 84443; 85025

== ENCOUNTER → 2025-01-16 07:29 | Outpatient (REF) | payer MEDICARE, OTHER, SELFPAY | LOC: RAD 07:29 | PROVIDERS: ATTENDING PHYSICIAN Internal Medicine Cardiovascular Disease; FAMILY PHYSICIAN Family Medicine | DX: I70.0 Atherosclerosis of aorta (principal); I73.9 Peripheral vascular disease, unspecified | CPT/HCPCS: 93922; 93925 ==

== ENCOUNTER → 2025-01-20 09:18 | Outpatient (REF) | payer MEDICARE, OTHER, SELFPAY | LOC: RCS 09:18 | PROVIDERS: ATTENDING PHYSICIAN Internal Medicine Cardiovascular Disease; FAMILY PHYSICIAN Family Medicine | DX: I10 Essential (primary) hypertension (principal); R06.09 Other forms of dyspnea | CPT/HCPCS: 93306; 93356 ==

== ENCOUNTER → 2025-01-24 14:18 | Outpatient (REF) | payer MEDICARE, OTHER, SELFPAY | LOC: REG 14:18 | PROVIDERS: ATTENDING PHYSICIAN Family Medicine | DX: J43.1 Panlobular emphysema (principal); J44.9 Chronic obstructive pulmonary disease, unspecified; R09.02 Hypoxemia | CPT/HCPCS: 71046 ==

== ENCOUNTER 2025-04-20 14:45 | Outpatient (RCR) | payer MEDICARE, OTHER, SELFPAY | END 2025-04-24 09:43 | disposition home or self-care (01) | LOC: PURB 14:45 | PROVIDERS: ATTENDING PHYSICIAN Internal Medicine Critical Care Medicine; FAMILY PHYSICIAN Family Medicine | DX: J44.9 Chronic obstructive pulmonary disease, unspecified (principal) | CPT/HCPCS: 94625; G0237 ==

== ENCOUNTER → 2025-05-10 06:51 | Outpatient (REF) | payer MEDICARE, OTHER, SELFPAY ==
[2025-05-10 07:18] LABS: Hematocrit 42.0 % (39.0-52.0); Hemoglobin 13.9 g/dL (13.0-18.0); Mean Corp Hgb Conc. 33.1 g/dL (33.0-37.0); Mean Corpuscular Volume 95.2 fL (80.0-94.0); Nucleated Red Blood Cells % 0 % (-); Platelet Count 245 10^3/uL (130-400); Red Cell Dist. Width 13.8 % (11.5-14.5)
[2025-05-10 08:00] LABS: ALT (SGPT) 49 U/L (0-50); AST (SGOT) 46 U/L (17-59); Albumin 4.5 g/dl (3.5-5.0); Alkaline Phosphatase 109 U/L (38-126); Blood Urea Nitrogen 19 mg/dl (9-20); Calcium 9.4 mg/dl (8.4-10.2); Carbon Dioxide 28 mmol/L (22-30); Chloride 105 mmol/L (98-107); Glucose 88 mg/dl (70-99); HDL Cholesterol 40 mg/dl; LDL Cholesterol, Calculated 49 mg/dl; Potassium 4.8 mmol/L (3.5-5.1); Sodium 139 mmol/L (135-145); Total Protein 7.3 g/dl (6.3-8.2); Very Low Density Lipoprotein 19 mg/dl (0-30); eGFR > 60.00
== END ==
LOC: REG 06:51
PROVIDERS: ATTENDING PHYSICIAN Family Medicine
DX: I10 Essential (primary) hypertension (principal); J43.1 Panlobular emphysema; E11.59 Type 2 diabetes mellitus with other circulatory complications; E78.00 Pure hypercholesterolemia, unspecified; I27.20 Pulmonary hypertension, unspecified; I48.19 Other persistent atrial fibrillation; E03.9 Hypothyroidism, unspecified
CPT/HCPCS: 36415; 80053; 80061; 84439; 84443; 85025

== ENCOUNTER 2025-05-25 14:45 | Outpatient (RCR) | payer MEDICARE, OTHER, SELFPAY | END 2025-05-25 23:59 | disposition home or self-care (01) | LOC: PURB 14:45 | PROVIDERS: ATTENDING PHYSICIAN Internal Medicine Critical Care Medicine; FAMILY PHYSICIAN Family Medicine | DX: J44.9 Chronic obstructive pulmonary disease, unspecified (principal); R06.09 Other forms of dyspnea; R94.2 Abnormal results of pulmonary function studies; I27.20 Pulmonary hypertension, unspecified; R91.8 Other nonspecific abnormal finding of lung field; G47.33 Obstructive sleep apnea (adult) (pediatric) | CPT/HCPCS: 94625 ==

== ENCOUNTER 2025-06-22 14:45 | Outpatient (RCR) | payer MEDICARE, OTHER, SELFPAY | END 2025-06-23 11:06 | disposition home or self-care (01) | LOC: PURB 14:45 | PROVIDERS: ATTENDING PHYSICIAN Internal Medicine Critical Care Medicine; FAMILY PHYSICIAN Family Medicine | DX: J44.9 Chronic obstructive pulmonary disease, unspecified (principal) | CPT/HCPCS: 94625 ==

== ENCOUNTER → 2025-06-27 07:49 | Outpatient (REF) | payer MEDICARE, OTHER, SELFPAY ==
[2025-06-27 10:07] LABS: TSH 1.80 uIU/ml (0.47-4.68)
== END ==
LOC: REG 07:49
PROVIDERS: ATTENDING PHYSICIAN Family Medicine
DX: R94.6 Abnormal results of thyroid function studies (principal)
CPT/HCPCS: 36415; 84439; 84443

== ENCOUNTER 2025-07-25 14:45 | Outpatient (RCR) | payer MEDICARE, OTHER, SELFPAY | END 2025-07-25 23:59 | disposition home or self-care (01) | LOC: PURB 14:45 | PROVIDERS: ATTENDING PHYSICIAN Internal Medicine Critical Care Medicine; FAMILY PHYSICIAN Family Medicine | DX: J44.9 Chronic obstructive pulmonary disease, unspecified (principal) | CPT/HCPCS: 94625 ==

== ENCOUNTER → 2025-08-01 10:46 | Outpatient (REF) | payer MEDICARE, OTHER, SELFPAY ==
[2025-08-01 12:46] LABS: TSH 1.52 uIU/ml (0.47-4.68)
== END ==
LOC: REG 10:46
DX: E03.9 Hypothyroidism, unspecified (principal)
CPT/HCPCS: 36415; 84439; 84443

== ENCOUNTER → 2025-09-08 13:15 | Outpatient (REF) | payer MEDICARE, OTHER, SELFPAY | LOC: HWRAD 13:15 | PROVIDERS: ATTENDING PHYSICIAN Family Medicine | DX: R26.89 Other abnormalities of gait and mobility (principal); R41.89 Other symptoms and signs involving cognitive functions and awareness | CPT/HCPCS: 70450 ==

== ENCOUNTER 2025-09-15 23:35 | Inpatient (IN) | payer MEDICARE, OTHER, SELFPAY ==
[2025-09-15 18:44] VITALS: BP 120/58
[2025-09-15 18:56] LABS: Hematocrit 41.9 % (39.0-52.0); Hemoglobin 13.8 g/dL (13.0-18.0); Mean Corp Hgb Conc. 32.9 g/dL (33.0-37.0); Mean Corpuscular Volume 94.2 fL (80.0-94.0); Nucleated Red Blood Cells % 0 % (-); Platelet Count 251 10^3/uL (130-400); Red Cell Dist. Width 13.8 % (11.5-14.5)
[2025-09-15 19:00] VITALS: BP 119/53
[2025-09-15 19:05] LABS: INR 1.23; PT 15.8 Sec (11.4-14.6)
[2025-09-15 19:10] LABS: ALT (SGPT) 18 U/L (0-50); AST (SGOT) 20 U/L (17-59); Albumin 4.5 g/dl (3.5-5.0); Alkaline Phosphatase 120 U/L (38-126); Blood Urea Nitrogen 19 mg/dl (9-20); Calcium 9.2 mg/dl (8.4-10.2); Carbon Dioxide 22 mmol/L (22-30); Chloride 104 mmol/L (98-107); Estimated Creatinine Clearance 67 ml/min; Glucose 133 mg/dl (70-99); Potassium 3.8 mmol/L (3.5-5.1); Sodium 138 mmol/L (135-145); Total Protein 7.4 g/dl (6.3-8.2); eGFR > 60.00
[2025-09-15 20:00] VITALS: BP 101/53
--- NOTE | 2025-09-15 20:17 | ED.GENMED ---
History of Present Illness
<Marylu Galdamez PA-C - Last Filed: 09/15/25 23:25>
General
Chief Complaint: Fainting/Passed Out
Time Seen by Provider: 09/15/25 20:15
History of Present Illness
History of Present Illness:
see MDM
Past History
<DENITA Moseley Last Filed: 09/15/25 23:25>
Past History
ED Past Medical History: Arrthythmia (Paroxysmal atrial fibrillation), Cancer (Melanoma, prostate cancer), GERD, HTN, Hypercholesterolemia, NIDDM and Psychiatric (Anxiety)
ED Past Surgical History: Orthopedic, Urological (Prostatectomy) and Other (Left scapular back melanoma removal with left axillary sentinel node biopsy December 2018)
Social History
Tobacco: Former smoker
Alcohol: Daily
Drug: None
Personal:
Living: with family
Employment: Retired
Family History
Family History: CAD and Other (Father with a pacemaker)
Phy Exam
<DENITA Moseley Last Filed: 09/15/25 23:25>
Physical Exam
Physical Exam:
GENERAL: Alert , in no apparent distress
EYE: pupils equal and reactive
NECK: Supple
ENT: o/p clr, mmm.
CARDIAC: irregular, pacs;
LUNGS: no tachypnea, mild wheezing throughout, no crackles, no rhonchi
ABDOMEN: Soft, without focal tenderness, no r/g, no cvat, normal bowel sounds
NEUROLOGICAL: Alert and oriented, no focal neuro deficits
SKIN: Warm and dry, skin intact.
MUSCULOSKELETAL: trace edema, well perfused. neg jaspreet's sign
PSYCH: Normal and appropriate interaction.
Course
<DENITA Moseley Last Filed: 09/15/25 23:25>
Orders/Labs/Results
Orders:
Orders
09/15/25 18:39
Electrocardiogram (*1) Urgent
Reason for Study: Chest Pain
EKG- Treatment ONCE
09/15/25 18:47
Complete Blood Count/With Diff Urgent
Comprehensive Metabolic Panel Urgent
Magnesium Urgent
Comment: ADD ON
Prothrombin Time Urgent
09/15/25 20:24
pacemaker [Interrogate Pacemaker- Treatment] ONCE
09/15/25 20:38
Albuterol Nebs [Ventolin Nebules] 2.5 mg INH R NOW STA
09/15/25 20:39
Add On- LAB Urgent
Tests Added?: magnesium
09/15/25 20:40
CR Chest - 2 Views Urgent
Comment:
Reason For Exam: sob, wheezing
09/15/25 20:53
COVID-19 Antigen Urgent
Source: Nasal Swab
NT-proBNP Urgent
Troponin I Urgent
Influenza A+B Rapid Molecular Urgent
CALLIE Source: Nasal Swab
Specimen Description:
09/15/25 22:30
Furosemide [Lasix] 40 mg IV NOW STA
09/15/25 22:54
Admit/Transfer Patient As Directed
Co-Sign Provider:
Level of Care: Inpatient admission
Assign to:: Telemetry
Physician / Group: Htay
Diagnosis: CHF
Reason for Telemetry: Acute Heart Failure
Date to Stop Telemetry: 09/18/25
Time to Stop Telemetry: 11:00
Reason for Hospitalization: IV diuretics
Expected length of stay greater than two midnights?: Yes
ELOS- Estimated Length of Stay in days: 3
I certify the patient meets the requirements for IP care: Yes
09/15/25 22:55
PRN Pain Medication Management As Directed
May give lesser potent ordered pain med per pt: Yes
preference::
Protocol:: Medication orders for pain may be administered in a
manner that supports deferring to patient preference
when the pt is:
- Requesting an ordered lesser potent pain medication.
Least to most potent pain medications are defined
as: acetaminophen < NSAID < tramadol < opioids
(morphine, oxycodone, hydromorphone).
- Requesting a lesser dose of the same medication IF
ORDERED.
- Requesting a less intrusive route of administration
if both routes are prescribed by the provider (PO <
IV).
09/15/25 23:04
Code Status As Directed
Resuscitation Status: Full Code
09/18/25 11:00
DC Protocol for Telemetry ONCE
Abnormal Lab Results
09/15/25
18:47
RBC 4.45 L 10^6/uL
(4.70-6.10)
MCV 94.2 H fL
(80.0-94.0)
MCHC 32.9 L g/dL
(33.0-37.0)
Absolute Monos (auto) 0.9 H 10^3/uL
(0.1-0.6)
Lymphocytes % 16.2 L %
(20.5-51.1)
Monocytes % 10.3 H %
(1.7-9.3)
PT 15.8 H Sec
(11.4-14.6)
Glucose 133 H mg/dl
(70-99)
09/15/25 18:47
09/15/25 18:47
Vital Signs
Initial and Last Documented VS:
Initial Vital Signs
Temp Pulse Resp
37.2 C 73 20
09/15/25 18:40 09/15/25 18:40 09/15/25 18:40
Last Documented Vital Signs
Temp Pulse Resp BP Pulse Ox
37.2 C 68 18 131/60 89
09/15/25 18:40 09/15/25 23:08 09/15/25 22:00 09/15/25 23:08 09/15/25 22:00
<Susan Monroe MD - Last Filed: 09/15/25 22:40>
Orders/Labs/Results
Orders:
Orders
09/15/25 18:39
Electrocardiogram (*1) Urgent
Reason for Study: Chest Pain
EKG- Treatment ONCE
09/15/25 18:47
Complete Blood Count/With Diff Urgent
Comprehensive Metabolic Panel Urgent
Magnesium Urgent
Comment: ADD ON
Prothrombin Time Urgent
09/15/25 20:24
pacemaker [Interrogate Pacemaker- Treatment] ONCE
09/15/25 20:38
Albuterol Nebs [Ventolin Nebules] 2.5 mg INH R NOW STA
09/15/25 20:39
Add On- LAB Urgent
Tests Added?: magnesium
09/15/25 20:40
CR Chest - 2 Views Urgent
Comment:
Reason For Exam: sob, wheezing
09/15/25 20:53
COVID-19 Antigen Urgent
Source: Nasal Swab
NT-proBNP Urgent
Troponin I Urgent
Influenza A+B Rapid Molecular Urgent
CALLIE Source: Nasal Swab
Specimen Description:
09/15/25 22:30
Furosemide [Lasix] 40 mg IV NOW STA
09/15/25 22:54
Admit/Transfer Patient As Directed
Co-Sign Provider:
Level of Care: Inpatient admission
Assign to:: Telemetry
Physician / Group: Roryy
Diagnosis: CHF
Reason for Telemetry: Acute Heart Failure
Date to Stop Telemetry: 09/18/25
Time to Stop Telemetry: 11:00
Reason for Hospitalization: IV diuretics
Expected length of stay greater than two midnights?: Yes
ELOS- Estimated Length of Stay in days: 3
I certify the patient meets the requirements for IP care: Yes
09/15/25 22:55
PRN Pain Medication Management As Directed
May give lesser potent ordered pain med per pt: Yes
preference::
Protocol:: Medication orders for pain may be administered in a
manner that supports deferring to patient preference
when the pt is:
- Requesting an ordered lesser potent pain medication.
Least to most potent pain medications are defined
as: acetaminophen < NSAID < tramadol < opioids
(morphine, oxycodone, hydromorphone).
- Requesting a lesser dose of the same medication IF
ORDERED.
- Requesting a less intrusive route of administration
if both routes are prescribed by the provider (PO <
IV).
09/15/25 23:04
Code Status As Directed
Resuscitation Status: Full Code
09/18/25 11:00
DC Protocol for Telemetry ONCE
Abnormal Lab Results
09/15/25
18:47
RBC 4.45 L 10^6/uL
(4.70-6.10)
MCV 94.2 H fL
(80.0-94.0)
MCHC 32.9 L g/dL
(33.0-37.0)
Absolute Monos (auto) 0.9 H 10^3/uL
(0.1-0.6)
Lymphocytes % 16.2 L %
(20.5-51.1)
Monocytes % 10.3 H %
(1.7-9.3)
PT 15.8 H Sec
(11.4-14.6)
Glucose 133 H mg/dl
(70-99)
09/15/25 18:47
09/15/25 18:47
Vital Signs
Initial and Last Documented VS:
Initial Vital Signs
Temp Pulse Resp
37.2 C 73 20
09/15/25 18:40 09/15/25 18:40 09/15/25 18:40
Last Documented Vital Signs
Temp Pulse Resp BP Pulse Ox
37.2 C 68 18 131/60 89
09/15/25 18:40 09/15/25 23:08 09/15/25 22:00 09/15/25 23:08 09/15/25 22:00
<Marylu Galdamez PA-C - Last Filed: 09/15/25 23:25>
MDM/Problems Addressed
Differential Diagnosis Includes:
see MDM
MDM/Problems Addressed:
Note:
CHIEF COMPLAINT(S)
Shortness of breath and syncope at a social event.
HISTORY OF PRESENT ILLNESS
The patient is an 80-year-old male with h/o sick sinus syndrome s/p pacer, COPD no o2, CHF on lasix, i who presented after experiencing syncope at a wedding. he was walking up the steps to go into the administrative receptionist, and he felt suddenly very winded, and
went to sit down. he sat but then slumped in the chair and briefly lost consciousness. no trauma from the syncope
never had chest pain
has had occ cough and dypsnea since
doesn't normally wear o2
just completed pulm rehab and lowest o2 sat 88%
was almost qualifying for o2 at home
on treligy and albuterol
no inc swelling in legs
takes xarelto for AF and doesn' tknow when he's in it.
family thinks he has been more SOB for a little while
ADDITIONAL HISTORY OBTAINED FROM SOURCES OTHER THAN THE PATIENT
According to the spouse, there was a suspicion of potential atrial fibrillation leading to shortness of breath earlier in the day. The spouse also noted that the patients oxygen levels have been borderline, typically declining with exertion.
SOCIAL DETERMINANTS AFFECTING HEALTH
The patient attended a wedding and was likely to have been involved in activities such as moving between event buildings, which were the context of the symptoms onset.
MEDICATIONS
Lasix (furosemide) as a diuretic for congestive heart failure.
Nebulizer treatments and Triumeq were mentioned as part of respiratory support, though oxygen therapy was previously declined by the patient.
REVIEW OF SYSTEMS
- Cardiovascular: History of pacemaker due to sick sinus syndrome, reported extra heart beats (ventricular arrhythmias such as premature ventricular contractions and premature atrial contractions).
- Respiratory: Shortness of breath, particularly when moving around or walking up steps; episodes of breathing through the stomach; SpO2 at 88%.
- General: Syncope episode without preceding injury or fall.
PHYSICAL EXAM
- General: Noted concern with very low oxygen levels upon exertion, 88% noted during exam.
- Nursing notes reviewed and vital signs reviewed.
PROBLEM LIST
Acute Problems:
- Syncope
- Shortness of Breath
Chronic Problems:
- Sick Sinus Syndrome
- Congestive Heart Failure
PLAN
- Evaluation of the pacemaker function and assessing any potential dysrhythmias.
- Investigate possible infection or chronic obstructive pulmonary disease exacerbation.
- Repeat oxygenation levels after nebulizer treatment to decide on oxygen therapy.
- Obtain additional blood work and consider testing for influenza and COVID-19 given acute presentation and pending holidays.
- Evaluation of hernia, noted by the patient as a non-urgent issue.
DIFFERENTIAL DIAGNOSIS
The Differential Diagnosis includes, in no particular order and is not limited to:
1. Congestive Heart Failure exacerbation
2. Dysrhythmia or a malfunction of the pacemaker
3. Atrial fibrillation
4. Chronic obstructive pulmonary disease exacerbation
5. Thoracic hernia-related complications
6. Acute infection (e.g., influenza, COVID-19)
7. Non-cardiac syncope (possibly vagal response)
8. Pulmonary embolism
9. Bronchitis or other respiratory infection
10. Anemia
09/15/25 - 22:21
80 y/o M with h/o copd not on o2, chf on lasix, htn, sick sinus pacer
here with BERNAL nad syncope tonight with walking
no cp
pulse ox low on RA 88%
some wheezing
no sig edema
occ cough
BNP 3000, CXR mild chf
trop neg
ekg sinus with pacs;
neb given
Oxygen saturation is at 89% on two liters, indicating potential issues with fluid in the lungs or COPD exacerbation versus heart failure. Blood tests suggest a possible heart failure flare-up. The patient was noted to have a history of atrial
fibrillation, but no ventricular fibrillation, reducing immediate concern for cardiac arrest. There appears to be a possible issue with the atrial lead wire, warranting further investigation by cardiology. The plan includes nebulizer treatments,
oxygen support, and monitoring overnight with a consult from a underwriting director. An echocardiogram is likely to be ordered to assess cardiac function further. An extra dose of diuretics (Lasix) is considered to manage fluid status, with caution advised
against exceeding the patients usual dosing. The patient is scheduled for a Watchman procedure on November 14. A transfer to the telemetry floor is anticipated for continued monitoring.
<Marylu Galdamez PA-C - Last Filed: 09/15/25 23:25>
*Pulse Oximetry
SaO2: 92
Oxygen Mode of Delivery: Room air
Patient hypoxic: yes (88)
*Critical Care Note
Total Time (30-74mins, 75-104mins- exclusive of procedures): Not Applicable
ED Attending Note
<Marylu Galdamez PA-C - Last Filed: 09/15/25 23:25>
-
Portions of this chart may have been created with voice recognition software.� Occasional wrong word or��sound alike� substitutions may have occurred due to the inherent limitations of voice recognition software.
<Susan Monroe MD - Last Filed: 09/15/25 22:40>
ED Attending Note
Patient seen and examined by attending physician: Yes
I performed the substantive portion of visit, reviewed & personally made and approve the management plan that is documented in note by myself or ROLO.: Yes
ED Attending Note:
I have seen and evaluated the patient with a [id number] encounter. I have spoken to the [ROLO] and involved in the medical history, the physical exam, medical decision making.
Evaluation and management service: agree unless noted differently below.
Results interpretation: agree unless noted differently below.
80-year-old male with history of A-fib on Xarelto, COPD, diabetes presenting to the emergency department for syncopal event. Patient states that he was walking on the had to walk up a flight of steps when he became short of breath. He then sat
down and had a syncopal event. He did not hit his head. He does state that he feels short of breath. He denies any chest pain. No nausea or vomiting. No abdominal pain. He is compliant with his Xarelto. He does state that he walks 4000 steps
at the gym and has never had symptoms of lightheadedness or dizziness upon exertion. Prior to my evaluation patient did receive a nebulizer treatment. He does state that he feels slightly better after receiving it. During my evaluation patient is
resting comfortably though intermittently has pursed breathing. Exam does show clear breath sounds. Heart is regular rate and rhythm. Abdomen soft nondistended nontender.
Concern for exertional syncope versus COPD exacerbation versus CHF exacerbation. Patient is requiring supplemental oxygen. Blood work notable for elevated BNP otherwise generally unremarkable. Will interrogate pacer. Discussed with hospitalist
who accept patient to their service.
Discharge Plan
Departure
Patient Disposition: Admit
Date of Disposition: 09/15/25
Time of Disposition: 22:24
Admit to: Telemetry
Presentation/result/management discussed w/ accepting MD/DO: Hospitalist
Condition: Fair
Covid-19: Not Applicable
Discharge Problem:
CHF (congestive heart failure), Syncope, COPD (chronic obstructive pulmonary disease)
Prescriptions:
No Action
losartan 50 MG tablet
100 mg PO DAILY@1200
omeprazole 40 MG capsule,delayed release(DR/EC)
40 mg PO DAILY@1200
multivitamin with folic acid [Tab-A-Cortney] 1 TABLET tablet
1 tab PO DAILY
magnesium oxide 400 MG tablet
400 mg PO BID
metformin 500 MG tablet
1,000 mg PO BID@0800,1700
ferrous sulfate [iron] 325 MG tablet
325 mg PO MOWEFR@1200
cholecalciferol (vitamin D3) [Vitamin D3] 1,000 UNIT capsule
1,000 unit PO DAILY@1200
Xarelto 20 MG tablet
20 mg PO QPM
albuterol sulfate [Ventolin HFA] 90 MCG/PUFF HFA aerosol inhaler
1 puff inhalation R Q6HPRN PRN (Reason: shortness of breath)
atorvastatin 40 MG tablet
40 mg PO HS
furosemide 20 mg Tablet
20 mg PO DAILY 30 Days Qty: 30 0RF
paroxetine HCl 10 mg Tablet
10 mg PO DAILY
levothyroxine 75 mcg Tablet
75 mcg PO DAILY
metoprolol succinate 25 mg Tablet Extended Release 24 Hr
25 mg PO DAILY
loratadine [Claritin] 10 mg Tablet
10 mg PO DAILY
dapagliflozin propanediol [Farxiga] 10 mg Tablet
10 mg PO DAILY
Trelegy Ellipta 100-62.5-25 mcg Blister With Device
1 inh INHALATION DAILY
Referrals:
Denys Olson MD [Family Provider, Family Practice]
Interventions
Interventions:
*Risk Screen - Suicide Last Done: 09/15/25 18:40
*General Assessment Last Done: 09/15/25 18:40
*Neglect/Abuse Screening Last Done: 09/15/25 18:40
*ED COVID-19 Vaccine History Last Done: 09/15/25 18:40
*ED Influenza Vaccine History Last Done: 09/15/25 18:40
ED- Cardiac Assessment Last Done: 09/15/25 19:20
ED- Neurological Assessment Last Done: 09/15/25 18:49
Discharge Date and Time
Print Language: TONGAN
[2025-09-15] MEDS: VENTOLIN NEBULES 2.5 MG INH (20:58)
[2025-09-15 21:00] VITALS: BP 127/60
[2025-09-15 21:16] LABS: Magnesium 1.8 mg/dl (1.6-2.3)
[2025-09-15 21:17] LABS: COVID-19 Antigen Negative (Negative)
[2025-09-15 21:26] LABS: Troponin I 0.012 ng/ml
[2025-09-15 22:00] VITALS: BP 127/55
--- NOTE | 2025-09-15 22:32 | W.PN.UPDATE ---
Update Note
Progress Note Update
This note serves as an addendum to the H&P by prison guard supervisor Mercedez KELLEY
HPI�
80F HX chr HFpEF, LVEF 50%, HX SSS s/p PPM, HX COPD,( not on home O2) seen at ER:
- pw syncope at a wedding while he was walking up the steps to go into the telephone operator receptionist
- suddenly felt very SoB and went to sit down
- he sat but then slumped in the chair and briefly lost consciousness.
- No trauma from the syncope
Just completed Pul rehab and lowest O2 sat 88% - was almost qualifying for Home O2, on Trelegy and albuterol
ROS
No CP
Relevant VS
Temp Pulse Resp BP Pulse Ox
98.9 F 63 18 127/55 89
09/15/25 18:40 09/15/25 22:00 09/15/25 22:00 09/15/25 22:00 09/15/25 22:00
PE
Gen: NAD, not orthopneic
Neck: supple. No JVD
Lungs: symmetric AE
Cor: RRR
Abdomen:soft POS BS �
SHIPPING TEAM LEADER: AAO3
MS: no edema
Psych: Nl mood and affect
PPM implant at L upper chest
Relevant Data
05/10/25 09/15/25
07:01 18:47
WBC 9.0
Hgb 13.9 13.8
Plt Count 251
09/15/25 09/15/25
18:47 20:53
Sodium 138
Potassium 3.8
Carbon Dioxide 22
Creatinine 0.9
eGFR > 60.00
Troponin I 0.012
03/10/24 01/11/25 09/15/25
08:09 08:58 20:53
Pro-BNP 6710 1580 3830
EKG:
Ventricular-paced rhythm WITH FREQUENT PREMATURE VENTRICULAR COMPLEXES
ABNORMAL ECG
WHEN COMPARED WITH ECG OF 10-Jun-2024 11:40,
ELECTRONIC VENTRICULAR PACEMAKER HAS REPLACED ELECTRONIC ATRIAL PACEMAKER
CXR: pending final report
03/25/2024 TTE : EF 50%, mild-moderate MR, mild-moderate TR, estimated PAP 53 mmHg
Last hospitalist admission : 03/25/24 - 03/27/24
DC Dxs:
Acute HF with Preserved Ejection Fraction
Wenckebach/Bradycardia/sick sinus syndrome
ASSESSMENT & PLAN
Pending Rx reconciliation
Acute on chr HFpEF
Mild acute hypoxia - POx
-BNP 3830
-Pending CXR
-Received IV Lasix 40 in ER
-GDMT PLANTING SUPERVISOR
- Diuretics: Lasix
- BB: Metoprolol succinate 25 mg BID
- ACEI/ARB/ARNi:on Losartan 100mg daily
- MRA:Not on it
- SGLT2i: on Dapagliflozin 10 mg daily
- Hold Metformin
- Strict I/O
- Daily wt
- To assess for Home O2 prior to DC
- DCA card consult
Syncope
HX Pulmonary HTN and chr HFpEF
-associated with exertion
- TLM
Recent Pul rehab
HX COPD
- stable
- PRN DuoNeb
- O2 to keep POx > 93
HX Paroxysmal AF
HX cardioversion, cardiac ablation in the past
PPM implant
- s/p PPM interrogation at ER
- c/w Xarelto
Essential HTN
- c/w home losartan
Hyperlipidemia
- statin continued
T2DM
- Hold metformin
- ISS low
- CHO diet
Pre existing Dxs:
Pulmonary HTN
CAD
HX pulmonary nodules
HX prostate cancer
Diverticulosis
Abdomen Aortic Aneurysm 2.4 cm
Chronic Ankylosing Spondylitis
Hypomagnesemia
DVT Px: Xarelto
Code: Full code
IP TLM
--- NOTE | 2025-09-15 22:33 | HPS.HSE ---
Family Physician
-
Family Physician: Denys Olson
Chief Complaint
-
Shortness of Breath
History of Present Illness
Patient is an 80 y/o male past medical history of atrial fibrillation, sick sinus syndrome s/p pacemaker, heart failure, hypertension, diabetes, and emphysema who presents with increased shortness of breath and a syncopal episode. Patient was
walking into a wedding guest relations receptionist when he developed increased shortness of breath. He sat in a chair to rest and briefly lost consciousness. He denies chest pain or palpitations.
Medical History
Past Medical History
Past Medical History: Reports Other
Additional Past Medical History:
Persistent Atrial Fibrillation
Sick Sinus Syndrome with symptomatic bradycardia s/p Permanent Pacemaker
Chronic HFpEF
Essential Hypertension
Hyperlipidemia
Diabetes Mellitus, Type II
Diabetic Neuropathy
COPD / Emphysema
Hypothyroidism
Abdominal Aortic Aneurysm
Malignant Melanoma
Past Surgical History: Reports Other
Additional Past Surgical History:
Melanoma Excision
Knee Surgery
Prostatectomy
Cardiac Ablation
Pacemaker Placement
Social History
Tobacco: Former Smoker
Alcohol: Occasional (Once a week)
Living: With Family
Family History
Family History: Not pertinent
Allergies / Home Medications
Allergies reflects when Allergies were last updated in [facility].
Home Medications with original date entered in [facility]
Allergy/Medication List:
Allergies
Allergy/AdvReac Type Severity Reaction Status Date / Time
No Known Drug Allergies Allergy Unknown Verified 09/15/25 18:38
Home Medications
losartan 50 mg tablet 100 mg PO DAILY@1200 Blood Pressure 12/31/18
multivitamin with folic acid 400 mcg tablet (Tab-A-Cortney) 1 tab PO DAILY Supplement 12/31/18
omeprazole 40 mg capsule,delayed release 40 mg PO DAILY@1200 Gastrointestinal Issue 12/31/18
magnesium oxide 400 mg PO BID Electrolyte Repletion 04/08/21
cholecalciferol (vitamin D3) 25 mcg (1,000 unit) capsule (Vitamin D3) 1,000 unit PO DAILY@1200 Supplement 04/23/21
ferrous sulfate 325 mg (65 mg iron) tablet (iron) 325 mg PO MOWEFR@1200 Supplement 04/23/21
metformin 500 mg tablet 1,000 mg PO BID@0800,1700 Diabetes 04/23/21
rivaroxaban 20 mg tablet (Xarelto) 20 mg PO QPM Blood Clot Prevention/Tx 04/23/21
albuterol sulfate 90 mcg/actuation aerosol inhaler (Ventolin HFA) 1 puff inhalation R Q6HPRN PRN shortness of breath 03/25/24
atorvastatin 40 mg tablet 40 mg PO HS High Cholesterol 03/25/24
furosemide 20 mg tablet 20 mg PO DAILY 30 days #30 tabs 03/27/24
paroxetine HCl 10 mg tablet 10 mg PO DAILY 04/20/24
dapagliflozin propanediol 10 mg tablet (Farxiga) 10 mg PO DAILY 09/15/25
fluticasone fur. 100 mcg-umeclid 62.5 mcg-vilant 25 mcg inhalat.powder (Trelegy Ellipta) 1 inh inhalation DAILY 09/15/25
levothyroxine 75 mcg tablet 75 mcg PO DAILY 09/15/25
loratadine 10 mg tablet (Claritin) 10 mg PO DAILY 09/15/25
metoprolol succinate 25 mg tablet,extended release 24 hr 25 mg PO DAILY 09/15/25
Review of Systems
-
History Source: Patient
A 12 point ROS was completed and negative except as noted: Yes
Constitutional: Denies Fever or Chills
Respiratory: Reports Trouble Breathing
Cardiac: Denies Chest Pain or Palpitations
Physical Exam
Vital Signs
Vital Signs
Temp Pulse Resp BP Pulse Ox
98.9 F 63 18 127/55 89
09/15/25 18:40 09/15/25 22:00 09/15/25 22:00 09/15/25 22:00 09/15/25 22:00
Physical Exam
General: Comfortable and Conversant
HEENT: Anicteric and Moist mucous membranes
Respiratory: Wheezes (Right greater than left) and Non Labored Respirations
Cardiac: S1/S2 and Regular Rhythm; No Murmur
GI: Soft and Non Tender
Rectal: Deferred by Provider
Musculoskeletal: No Clubbing and No Edema
Skin: Warm and Dry
Neuro: Awake, Alert, Oriented and Nonfocal/grossly intact
Psych: Calm
Laboratory Results
-
09/15/25 18:47
09/15/25 18:47
Laboratory Results
PT 15.8 Sec (11.4-14.6) H 09/15/25 18:47
INR 1.23 09/15/25 18:47
Total Bilirubin 0.8 mg/dl (0.2-1.3) 09/15/25 18:47
AST 20 U/L (17-59) 09/15/25 18:47
ALT 18 U/L (0-50) 09/15/25 18:47
Alkaline Phosphatase 120 U/L (38-126) 09/15/25 18:47
Troponin I 0.012 ng/ml 09/15/25 20:53
Data Reviewed
-
Diagnostic Radiology: Image Personally Visualized and interpreted (Chest X-Ray with evidence of pulmonary edema)
Lab Data: Labs Reviewed by me
Impression/Plan
-
Acute Hypoxic Respiratory Insufficiency
-Continue supplemental oxygen
-Patient reports almost qualifying for home oxygen in the past - Will need to assess for home oxygen prior to discharge
Acute on Chronic HFpEF
-Consult Cardiology
-Continue Lasix 40mg IV Daily
-Continue GDMT
-Monitor Daily Weights
Sick Sinus Syndrome with symptomatic bradycardia s/p Permanent Pacemaker
-Device reports indicated atrial leaf position check failed - Defer to Cardiology
Persistent Atrial Fibrillation
-Continue Xarelto for anticoagulation
-Continue metoprolol for rate control
Essential Hypertension
Hyperlipidemia
-Continue atorvastatin
Diabetes Mellitus, Type II
-Hold metformin
-Continue Farxiga
-Monitor sugars and continue coverage insulin
Diabetic Neuropathy
COPD / Emphysema, no acute exacerbation
-Transition Trelegy to Pulmicort Neb and DuoNeb during hospitalization
Hypothyroidism
-Continue levothyroxine
DVT proph: Xarelto
Code Status: Full Code
[2025-09-15 23:00] VITALS: BP 131/60
[2025-09-15] MEDS: LASIX 40 MG IV (23:08)
[2025-09-16] VITALS (11 sets, daily range): BP systolic 92–144; BP diastolic 43–66; PULSE 60–69; O2SAT 95; BMI 25.3; BMI 24.8
--- NOTE | 2025-09-16 03:26 | PTCARENOTE ---
Receive pt from ER. Pt alert, oriented X3, calm, in no distress. Pt assist X1 to bed, feels weak, but steady. Pt oriented to the room, call ramos within reach. Pt on V-paced on telemonitor. VV (T=97.9, HR=63, RR=20, XP=824/59, SpO2=97% on 5L NC). Pt
denies chest pain, dizziness, or syncope. Will continue to monitor the pt.
[2025-09-16] MEDS: SYNTHROID 75 MCG PO (05:23)
[2025-09-16 06:48] LABS: Hematocrit 38.0 % (39.0-52.0); Hemoglobin 13.0 g/dL (13.0-18.0); Mean Corp Hgb Conc. 34.2 g/dL (33.0-37.0); Mean Corpuscular Volume 91.3 fL (80.0-94.0); Platelet Count 241 10^3/uL (130-400); Red Cell Dist. Width 13.8 % (11.5-14.5)
[2025-09-16] MEDS: PULMICORT 0.5 MG INH ×2 (07:24→19:33)
[2025-09-16] MEDS: DUONEB 3 ML INH ×4 (07:24→19:34)
[2025-09-16 07:36] LABS: Glucose - Point of Care 103 mg/dl (70-99)
[2025-09-16 07:46] LABS: Blood Urea Nitrogen 20 mg/dl (9-20); Calcium 9.1 mg/dl (8.4-10.2); Carbon Dioxide 25 mmol/L (22-30); Chloride 104 mmol/L (98-107); Estimated Creatinine Clearance 76 ml/min; Glucose 107 mg/dl (70-99); Magnesium 1.7 mg/dl (1.6-2.3); Potassium 3.9 mmol/L (3.5-5.1); Sodium 137 mmol/L (135-145); eGFR > 60.00
--- NOTE | 2025-09-16 08:38 | W.PN.HOSP.TC ---
Today's Communication/Plan
-
IV diuresis
Amiodarone
DuoNeb
PT/OT
Assessment / Plan
Assessment / Plan
80M w/AF, SSS s/p pacemaker, dCHF, HTN, DM, and emphysema who presents with increased shortness of breath and a syncopal episode.
Acute Hypoxic Respiratory Insufficiency
2/2 Acute on Chronic HFpEF
-Consulted Cardiology, d/w Dr. Overton
-Continue Lasix 40mg IV Daily
-Continue GDMT
echo pending
-Monitor Daily Weights
-wean O2 as able
given wheezing, will also add duonebs
Syncope
unclear if vagal or due to hypoxia
orthostatic VS
amb pulse ox
PT/OT. Per family and cardiology, patient with unsteady gait, if will have gait evaluated by PT, and if needed inpatient PM&R consult
Sick Sinus Syndrome with symptomatic bradycardia s/p Permanent Pacemaker
-Device reports indicated atrial leaf position check failed - Defer to Cardiology
Persistent Atrial Fibrillation
s/p cardioversion 2023
-Continue Xarelto for anticoagulation
-Continue metoprolol for rate control
Amiodarone per cardiology
Likely inpatient CV on Thursday
Essential Hypertension
BP controlled continue losartan, metoprolol
Hyperlipidemia
-Continue atorvastatin
Diabetes Mellitus, Type II with neuropathy
-Hold metformin
-Continue Farxiga
-Monitor sugars and continue coverage insulin
BG control
COPD / Emphysema
Active wheezing noted
DuoNebs as above
Hypothyroidism
-Continue levothyroxine
DVT proph: Xarelto
Code Status: Full Code
Anticipated Discharge: > 48 hours
Subjective/Interval History
-
Date of Service: September 16, 2025
Patient states he had has bloating in his abdomen, denies shortness of breath at present, denies chest pain. Daughter and at bedside. Patient denies any issues with walking, and daughter do note that he puts his arms out to the side when
he walks. They ask about extending his pulmonary rehab.
Objective Data
-
Labs:
Laboratory Results
09/16/25
06:06
WBC 10.2
Hgb 13.0
Hct 38.0 L
Plt Count 241
Sodium 137
Potassium 3.9
Chloride 104
Carbon Dioxide 25
BUN 20
Creatinine 0.8
Glucose 107 H
Calcium 9.1
Vital Signs:
Vital Signs
Temp Pulse Resp BP Pulse Ox
99.2 F 61 16 137/59 97
09/16/25 07:25 09/16/25 07:28 09/16/25 07:28 09/16/25 07:25 09/16/25 07:28
I&O
09/15/25 09/16/25 09/17/25
06:59 06:59 06:59
Output Total 1680 / 1680
Balance -1680 / -1680
Review of Systems
-
All other systems: Reviewed and negative
Physical Exam
-
General: No Apparent Distress
HEENT: Moist Mucous Membranes, Anicteric and PERRLA
Respiratory: Wheezes, Rales and Rhonchi
Cardiac: Irregular Rhythm and Murmur; Negative Rub or Gallop
GI: Soft, Nontender, Normal Bowel Sounds, Distended and Other (Hernia)
Musculoskeletal: No Edema
Skin: Warm and Dry; Negative Rash, Ulcers or Lesions
Neuro: Awake and AO x 3
Hematologic / Lymphatic: No Lymphadenopathy
Psych: Calm
Data Reviewed
-
Diagnostic Radiology: Image personally visualized and interpreted, Discussed with Patient and Discussed with Family
Labs: Labs Reviewed by me, Discussed with Patient and Discussed with Family
[2025-09-16] MEDS: NOVOLOG FLEXPEN-LOW RESISTANCE SC ×2 (08:45→12:40)
[2025-09-16] MEDS: CLARITIN 10 MG PO (08:50)
[2025-09-16] MEDS: PAXIL 10 MG PO (08:50)
[2025-09-16] MEDS: FARXIGA 10 MG PO (08:50)
[2025-09-16] MEDS: TOPROL XL 25 MG PO (08:50)
[2025-09-16] MEDS: LASIX 40 MG IV (08:51)
[2025-09-16] MEDS: FLUSH (NSS) 2 FLUSH IV (08:51)
[2025-09-16 08:52] LABS: Glycohemoglobin (HgbA1c) 6.7 % (4.0-5.9)
--- NOTE | 2025-09-16 09:21 | CON.CAR ---
Addendum entered and electronically signed by Gordo Overton MD 09/16/25 12:19:
Patient seen and examined
Agree with DENITA Chen's note and assessment
Noted to be in persistent atypical atrial flutter with a flat P wave across precordium inferior leads. 1 to 2 weeks of diastolic heart failure symptoms. He does have a known mildly depressed ejection fraction of 40% at last echo. In the
background he is also had memory issues and a broad-based gait with imbalance�balance issues. He is currently scheduled for watchman implantation and atypical flutter ablation in October 2025.
Exam:
Device site clean dry and intact
Alert and x 3
He is in mild distress from respiratory perspective
Nonfocal neurologically
JVP 7-8
Cor is regular with a 1 out of 6 murmur
He has rales at the bases
His abdomen is distended and nontender with no fluid wave palpable
Trace extremity edema
Primary Care Doctor: Denys Olson MD
Primary Lube Man: Erum Puente DO
Orchard Sprayer: Gordo Overton
Impression:
Presented 09/15/2025 with acute shortness of breath and syncope
Heart failure with preserved ejection fraction
Paroxysmal atrial tachycardia/flutter (noted on device check 09/06/25 in office)
Bradycardia/sick sinus syndrome
Status post Medtronic dual-chamber XRT compatible pacemaker March 2026Paroxysmal atrial fibrillation and atrial flutter
status post PVI 10/2019
redo PVI/RFA hronic anticoagulation with Xarelto
Pulmonary hypertension by echo 03/2022 with improvement by echo 08/2022
Ambulatory dysfunction with falls
PVCs
Hyperlipidemia
CAD
Diabetes type 2
PAD
COPD
Abdominal aortic aneurysm Fusiform infrarenal abdominal aortic aneurysm, 2.4 [address] dimension on CT February 2024
Malignant melanoma
History of pulmonary nodules
History of prostate cancer
2D echocardiogram 03/25/2024:Low normal to mildly reduced LV ejection fraction estimated 50%.� Normal RV size and systolic function.� Mild LVH.� Mild biatrial dilatation.� Mild to moderate MR.� Trileaflet aortic valve without stenosis and no aortic
regurgitation.� Mild to moderate TR.� Estimated pulmonary artery pressure 53 mmHg.� No pericardial effusion.
Cardiac catheterization February 2021: LM: Patent. LAD: LI. Diagonal 160% proximal stenosis. Left circumflex LI. RCA: Mid chronic total occlusion with filling via well-developed right to right and faint [id number] collaterals.
Plan:
- Presented 09/14/20212024 with acute shortness of breath and syncope.
Heart failure with preserved ejection fraction
- proBNP 3830 and chest x-ray showing increased interstitial markings consistent with pulmonary edema
- Ongoing diuresis with IV Lasix. Weight down several pounds since admission with negative fluid balance. Patient was on Lasix 20 mg as outpatient.
- Still requiring 4 L of oxygen via nasal cannula, wean as able
-Last echo from February 2024 showed low normal EF. Repeat echo on Thursday
- Monitor renal function and electrolytes
- Continue losartan, metoprolol and Farxiga
- There may also be component of COPD exacerbation. Consider nebulizers but will defer to primary service
History of paroxysmal atrial fibrillation flutter with previous PVI.
- Currently ventricular paced with controlled ventricular response.
- Noted to have slow atrial flutter/atrial tachycardia in office 09/06/2025. Pacemaker interrogation noted arrhythmia started 09/01/2025 and ongoing by device interrogation 09/15/2025 in emergency department. This may be exacerbating his heart
failure.
- Will start amiodarone 200 mg 3 times daily and attempt of congregation of sinus rhythm. If fails to convert to sinus rhythm consider proceeding with cardioversion 09/18/2025
- Continue anticoagulation with Xarelto
Known coronary artery disease with occluded RCA. Continue aggressive medical management with statin, Farxiga, beta-kat.
Patient is scheduled for Watchman implant and repeat PVI/flutter ablation 11/14/2025.
Would recommend neurologic evaluation and/or physical medicine and rehabilitation teams to evaluate the patient for his broad-based gait. I did communicate with his outpatient primary care physician Dr. Olson regarding consideration for workup
for normal pressure hydrocephalus and it appears that a CT of the head was done without significant abnormality. Defer to internal medicine team pattern of consultation. I also had conversations with the patient's outpatient seed analysis laboratory assistant who
agrees with this plan.
Plan discussed with patient, patient's and daughter who are at bedside as well as nursing
Original Note:
Consultation
Consultation Request
Date/Time Consultation Requested: 09/16/2025
Date/Time Consultation Performed: 09/16/2025
Requesting Provider: Leticia Hill PA-C
Performing Provider: Moni Chen PA-C for Dr. Overton
Reason for Consultation: Heart failure, atrial tachycardia
Medical History
-
History of Present Illness:
Patient is an 80 yo M with PMH of paroxysmal afib and aflutter s/p PVI 10/2019 and redo PVI and RFA 03/2021, SSS s/p PPM, pulm HTN, PVCs, HLD, CAD, DM2, COPD, pulmonary nodules who was recently seen in cardiology office 09/06/2025 and was found to be
in atrial tachycardia/atrial flutter. There was discussion with electrophysiology regarding watchman implant as he had had several falls over the last year as well as undergoing repeat PVI/flutter ablation. Procedures scheduled for November 14,
2025. Patient was at a wedding and was walking into the bookkeeper receptionist when he started to get short of breath. He then had a brief loss of consciousness/slumped over in chair witnessed by family. Incurred no injuries. Brought to emergency department
for evaluation. EKG demonstrated ventricular paced rhythm with frequent PVCs and bigeminy pattern. Troponin was undetectable. proBNP elevated at 3830. Chest x-ray showed mild congestive heart failure with mild interstitial edema. Provided 40 mg
IV Lasix in ED.
PMH:
Bradycardia/sick sinus syndrome
Status post Medtronic dual-chamber XRT compatible pacemaker March 2026
Paroxysmal atrial fibrillation and atrial flutter
status post PVI 10/2019
redo PVI/RFA 03/2021
Chronic anticoagulation with Xarelto
Pulmonary hypertension by echo 03/2022 with improvement by echo 08/2022
PVCs
Hyperlipidemia
CAD
Diabetes type 2
PAD
COPD
History of pulmonary nodules
History of prostate cancer
Past Medical History
Past Medical History: Other (in HPI)
Past Surgical History: Cardiac (PVI ablation 2019, repeat 2020, dual-chamber Medtronic XRT compatible pacemaker March 2026), Orthopedic (Knee surgery), Urological (Radical prostatectomy) and Other (Melanoma skin excision)
Social History
Tobacco: Former Smoker
Personal:
Living: With Family
Employment: Retired
Family History
Family History: CAD (Father CAD)
Allergies / Home Medications
Allergy/AdvReac Type Severity Reaction Status Date / Time
No Known Drug Allergies Allergy Unknown Verified 09/15/25 18:38
�Medication �Instructions �Recorded �Confirmed �Type
losartan 50 mg tablet 100 mg PO DAILY@1200 Blood Pressure 12/31/18 09/15/25 History
multivitamin with folic acid 400 1 tab PO DAILY Supplement 12/31/18 09/15/25 History
mcg tablet (Tab-A-Cortney)
omeprazole 40 mg capsule,delayed 40 mg PO DAILY@1200 12/31/18 09/15/25 History
release Gastrointestinal Issue
magnesium oxide 400 mg PO BID Electrolyte Repletion 04/08/21 09/15/25 History
cholecalciferol (vitamin D3) 25 1,000 unit PO DAILY@1200 Supplement 04/23/21 09/15/25 History
mcg (1,000 unit) capsule (Vitamin
D3)
ferrous sulfate 325 mg (65 mg 325 mg PO MOWEFR@1200 Supplement 04/23/21 09/15/25 History
iron) tablet (iron)
metformin 500 mg tablet 1,000 mg PO BID@0800,1700 Diabetes 04/23/21 09/15/25 History
rivaroxaban 20 mg tablet (Xarelto) 20 mg PO QPM Blood Clot 04/23/21 09/15/25 History
Prevention/Tx
albuterol sulfate 90 mcg/actuation 1 puff inhalation R Q6HPRN PRN 03/25/24 09/15/25 History
aerosol inhaler (Ventolin HFA) shortness of breath
atorvastatin 40 mg tablet 40 mg PO HS High Cholesterol 03/25/24 09/15/25 History
furosemide 20 mg tablet 20 mg PO DAILY 30 days #30 tabs 03/27/24 09/15/25 Rx
paroxetine HCl 10 mg tablet 10 mg PO DAILY Mental 04/20/24 09/15/25 History
Health/Anxiety
dapagliflozin propanediol 10 mg 10 mg PO DAILY 09/15/25 09/15/25 History
tablet (Farxiga)
fluticasone fur. 100 mcg-umeclid 1 inh inhalation DAILY 09/15/25 09/15/25 History
62.5 mcg-vilant 25 mcg Lung/Breathing Issues
inhalat.powder (Trelegy Ellipta)
levothyroxine 75 mcg tablet 75 mcg PO DAILY Thyroid 09/15/25 09/15/25 History
loratadine 10 mg tablet (Claritin) 10 mg PO DAILY Allergies 09/15/25 09/15/25 History
metoprolol succinate 25 mg 25 mg PO DAILY Heart 09/15/25 09/15/25 History
tablet,extended release 24 hr Disease/Condition
Review of Systems
-
History Source: Patient
All other systems: Negative unless noted
Physical Exam
Vital Signs
Temp Pulse Resp BP Pulse Ox
99.2 F 74 16 137/59 97
09/16/25 07:25 09/16/25 08:50 09/16/25 07:28 09/16/25 08:50 09/16/25 07:28
GEN: No distress, awake, Ox3, on oxygen
HEENT: supple, anicteric, mmm
LUNGS: Faint expiratory wheezes, fine crackles at bases
CV: Reg, S1/S2, 1/6 syst murmur
ABD: soft, BS+, NT/ND
EXT: No edema, no clubbing or cyanosis
NEURO: Gross non-focal
SKIN: No rash, warm, dry, pink
Lab Results
09/16/25 06:06
09/16/25 06:06
Troponin I 0.012 ng/ml 09/15/25 20:53
Fbf-[id number] Pept 3830 pg/ml 09/15/25 20:53
Impression / Plan
-
Primary Care Doctor: Denys Olson MD
Primary Lube Man: Erum Puente DO
Orchard Sprayer: Gordo Overton
Impression:
Presented 09/15/2025 with acute shortness of breath and syncope
Heart failure with preserved ejection fraction
Paroxysmal atrial tachycardia/flutter (noted on device check 09/06/25 in office)
Bradycardia/sick sinus syndrome
Status post Medtronic dual-chamber XRT compatible pacemaker March 2026
Paroxysmal atrial fibrillation and atrial flutter
status post PVI 10/2019
redo PVI/RFA 03/2021
Chronic anticoagulation with Xarelto
Pulmonary hypertension by echo 03/2022 with improvement by echo 08/2022
Ambulatory dysfunction with falls
PVCs
Hyperlipidemia
CAD
Diabetes type 2
PAD
COPD
Abdominal aortic aneurysm Fusiform infrarenal abdominal aortic aneurysm, 2.[address] February 2024
Malignant melanoma
History of pulmonary nodules
History of prostate cancer
2D echocardiogram 03/25/2024:Low normal to mildly reduced LV ejection fraction estimated 50%.� Normal RV size and systolic function.� Mild LVH.� Mild biatrial dilatation.� Mild to moderate MR.� Trileaflet aortic valve without stenosis and no aortic
regurgitation.� Mild to moderate TR.� Estimated pulmonary artery pressure 53 mmHg.� No pericardial effusion.
Cardiac catheterization February 2021: LM: Patent. LAD: LI. Diagonal 160% proximal stenosis. Left circumflex LI. RCA: Mid chronic total occlusion with filling via well-developed right to right and faint [id number] collaterals.
Plan:
- Presented 09/14/20212024 with acute shortness of breath and syncope.
Heart failure with preserved ejection fraction
- proBNP 3830 and chest x-ray showing increased interstitial markings consistent with pulmonary edema
- Ongoing diuresis with IV Lasix. Weight down several pounds since admission with negative fluid balance. Patient was on Lasix 20 mg as outpatient.
- Still requiring 4 L of oxygen via nasal cannula, wean as able
-Last echo from February 2024 showed low normal EF. Repeat echo if patient still here on 09/18/2025 after congregation of sinus rhythm
- Monitor renal function and electrolytes
- Continue losartan, metoprolol and Farxiga
- There may also be component of COPD exacerbation. Consider nebulizers but will defer to primary service
History of paroxysmal atrial fibrillation flutter with previous PVI.
- Currently ventricular paced with controlled ventricular response.
- Noted to have slow atrial flutter/atrial tachycardia in office 09/06/2025. Pacemaker interrogation noted arrhythmia started 09/01/2025 and ongoing by device interrogation 09/15/2025 in emergency department. This may be exacerbating his heart
failure.
- Will start amiodarone 200 mg 3 times daily and attempt of congregation of sinus rhythm. If fails to convert to sinus rhythm consider proceeding with cardioversion 09/18/2025
- Continue anticoagulation with Xarelto
Known coronary artery disease with occluded RCA. Continue aggressive medical management with statin, Farxiga, beta-kat.
Patient is scheduled for Watchman implant and repeat PVI/flutter ablation 11/14/2025.
Plan discussed with patient, patient's and daughter who are at bedside as well as nursing
HPI 09/16/2025:
Patient is an 80 yo M with PMH of paroxysmal afib and aflutter s/p PVI 10/2019 and redo PVI and RFA 03/2021, SSS s/p PPM, pulm HTN, PVCs, HLD, CAD, DM2, COPD, pulmonary nodules who was recently seen in cardiology office 09/06/2025 and was found to be
in atrial tachycardia/atrial flutter. There was discussion with electrophysiology regarding watchman implant as he had had several falls over the last year as well as undergoing repeat PVI/flutter ablation. Procedures scheduled for November 14,
2025. Patient was at a wedding and was walking into the bookkeeper receptionist when he started to get short of breath. He then had a brief loss of consciousness/slumped over in chair witnessed by family. Incurred no injuries. Brought to emergency department
for evaluation. EKG demonstrated ventricular paced rhythm with frequent PVCs and bigeminy pattern. Troponin was undetectable. proBNP elevated at 3830. Chest x-ray showed mild congestive heart failure with mild interstitial edema. Provided 40 mg
IV Lasix in ED.
Data Reviewed
-
EKG: Report Reviewed by me, Discussed with Physician, Discussed with Nurse, Discussed with Patient and Discussed with Family
Radiology: Report Reviewed by me, Discussed with Physician, Discussed with Nurse, Discussed with Patient and Discussed with Family
Labs: Labs Reviewed by me, Discussed with Physician, Discussed with Nurse, Discussed with Patient and Discussed with Family
Old Records: Reviewed
--- NOTE | 2025-09-16 10:41 | RESPNOTE ---
Pt unsteady on his feet, used walker,SAO2 91% on RA, SAO2 88% on RA, discharge will not occur till Thursday, ambulating pulse ox, should be obtained closer to discharge
[2025-09-16 12:38] LABS: Glucose - Point of Care 102 mg/dl (70-99)
[2025-09-16] MEDS: COZAAR 100 MG PO (12:41)
[2025-09-16] MEDS: PACERONE 200 MG PO ×3 (12:41→21:11)
[2025-09-16] MEDS: XARELTO 20 MG PO (16:56)
[2025-09-16 17:56] LABS: Glucose - Point of Care 182 mg/dl (70-99)
[2025-09-16] MEDS: NOVOLOG FLEXPEN-LOW RESISTANCE 1 UNITS SC (18:17)
[2025-09-16] MEDS: LIPITOR 40 MG PO (21:11)
[2025-09-16 21:33] LABS: Glucose - Point of Care 131 mg/dl (70-99)
[2025-09-17] VITALS (7 sets, daily range): BP systolic 100–131; BP diastolic 52–77; O2SAT 91–96; BMI 24.6
[2025-09-17] MEDS: SYNTHROID 75 MCG PO (05:33)
[2025-09-17 06:04] LABS: Hematocrit 37.4 % (39.0-52.0); Hemoglobin 12.8 g/dL (13.0-18.0); Mean Corp Hgb Conc. 34.2 g/dL (33.0-37.0); Mean Corpuscular Volume 91.9 fL (80.0-94.0); Platelet Count 249 10^3/uL (130-400); Red Cell Dist. Width 13.8 % (11.5-14.5)
[2025-09-17 06:25] LABS: Blood Urea Nitrogen 27 mg/dl (9-20); Calcium 9.1 mg/dl (8.4-10.2); Carbon Dioxide 27 mmol/L (22-30); Chloride 104 mmol/L (98-107); Estimated Creatinine Clearance 61 ml/min; Glucose 137 mg/dl (70-99); Potassium 3.8 mmol/L (3.5-5.1); Sodium 136 mmol/L (135-145); eGFR > 60.00
[2025-09-17] MEDS: DUONEB 3 ML INH ×4 (07:25→19:49)
[2025-09-17] MEDS: PULMICORT 0.5 MG INH ×2 (07:26→19:49)
[2025-09-17 07:27] LABS: Glucose - Point of Care 134 mg/dl (70-99)
[2025-09-17] MEDS: NOVOLOG FLEXPEN-LOW RESISTANCE SC (08:13)
--- NOTE | 2025-09-17 08:19 | W.PN.HOSP.TC ---
Today's Communication/Plan
-
Still with crackles, continue IV diuresis
Amiodarone
DuoNeb
Cardioversion on Thursday
Assessment / Plan
Assessment / Plan
80M w/AF, SSS s/p pacemaker, dCHF, HTN, DM, and emphysema who presents with increased shortness of breath and a syncopal episode.
Acute Hypoxic Respiratory Insufficiency
2/2 Acute on Chronic HFpEF
-Consulted Cardiology, d/w Dr. Overton
-Continue Lasix 40mg IV Daily
-Continue GDMT
echo pending
-Monitor Daily Weights
-wean O2 as able
given wheezing, continue duonebs
Syncope
unclear if vagal or due to hypoxia
orthostatic VS
amb pulse ox
PT/OT. Per family and cardiology, patient with unsteady gait, per cardiology note concerned pt may need inpatient PM&R consult vs neuro consult. Gait evaluated by PT Per PT wide base gait, a little unsteady but no loss of balance.They rec HHC.
Sick Sinus Syndrome with symptomatic bradycardia s/p Permanent Pacemaker
-Device reports indicated atrial leaf position check failed - Defer to Cardiology
Persistent Atrial Fibrillation
s/p cardioversion 2023
-Continue Xarelto for anticoagulation
-Continue metoprolol for rate control
Amiodarone per cardiology
Likely inpatient CV on Thursday
Essential Hypertension
BP controlled continue losartan, metoprolol
Hyperlipidemia
-Continue atorvastatin
Diabetes Mellitus, Type II with neuropathy
-Hold metformin
-Continue Farxiga
-Monitor sugars and continue coverage insulin
BG controlled
COPD / Emphysema
Active wheezing noted
DuoNebs as above
Hypothyroidism
-Continue levothyroxine
DVT proph: Xarelto
Code Status: Full Code
Anticipated Discharge: > 48 hours
Subjective/Interval History
-
Date of Service: September 17, 2025
Patient feeling okay, denies shortness of breath at rest. is at bedside.
Objective Data
-
Labs:
Laboratory Results
09/17/25
05:17
WBC 9.9
Hgb 12.8 L
Hct 37.4 L
Plt Count 249
Sodium 136
Potassium 3.8
Chloride 104
Carbon Dioxide 27
BUN 27 H
Creatinine 1.0
Glucose 137 H
Calcium 9.1
Vital Signs:
Vital Signs
Temp Pulse Resp BP Pulse Ox
97.3 F 61 16 123/55 97
09/17/25 07:25 09/17/25 07:28 09/17/25 07:28 09/17/25 07:25 09/17/25 07:28
I&O
09/16/25 09/17/25 09/18/25
06:59 06:59 06:59
Intake Total 768 / 768
Output Total 1680 / 1680 1165 / 1165
Balance -1680 / -1680 -397 / -397
Review of Systems
-
All other systems: Reviewed and negative
Physical Exam
-
General: No Apparent Distress
HEENT: Moist Mucous Membranes, Anicteric and PERRLA
Respiratory: Rales and Rhonchi; Negative Wheezes
Cardiac: Irregular Rhythm and Murmur; Negative Rub or Gallop
GI: Soft, Nontender, Normal Bowel Sounds, Distended and Other (Hernia)
Musculoskeletal: No Edema
Skin: Warm and Dry; Negative Rash, Ulcers or Lesions
Neuro: Awake and AO x 3
Hematologic / Lymphatic: No Lymphadenopathy
Psych: Calm
Data Reviewed
-
Diagnostic Radiology: Image personally visualized and interpreted, Discussed with Patient and Discussed with Family
Labs: Labs Reviewed by me, Discussed with Patient and Discussed with Family
[2025-09-17] MEDS: PACERONE 200 MG PO ×3 (08:26→21:22)
[2025-09-17] MEDS: PAXIL 10 MG PO (08:26)
[2025-09-17] MEDS: FARXIGA 10 MG PO (08:26)
[2025-09-17] MEDS: CLARITIN 10 MG PO (08:26)
[2025-09-17] MEDS: LASIX 40 MG IV (08:27)
[2025-09-17] MEDS: TOPROL XL 25 MG PO (08:27)
[2025-09-17] MEDS: FLUSH (NSS) 2 FLUSH IV (08:27)
--- NOTE | 2025-09-17 08:45 | W.PN.CARDCBS ---
Today's Communication / Plan
-
IV diuresis
Amiodarone loading
Oral anticoagulation
Cardioversion September 18
Watchman and concomitant PVI implant October 2025
Impression / Plan
-
Primary Care Doctor: Denys Olson MD
Primary Tire Mold Engraver: Erum Puente DO
Organ Pipe Finisher: Gordo Overton
Impression:
Presented 09/15/2025 with acute shortness of breath and syncope
Heart failure with preserved ejection fraction
Paroxysmal atrial tachycardia/flutter (noted on device check 09/06/25 in office)
Bradycardia/sick sinus syndrome
Status post Medtronic dual-chamber XRT compatible pacemaker March 2026
Paroxysmal atrial fibrillation and atrial flutter
status post PVI 10/2019
redo PVI/RFA 03/2021
Chronic anticoagulation with Xarelto
Pulmonary hypertension by echo 03/2022 with improvement by echo 08/2022
Ambulatory dysfunction with falls
PVCs
Hyperlipidemia
CAD
Diabetes type 2
PAD
COPD
Abdominal aortic aneurysm Fusiform infrarenal abdominal aortic aneurysm, 2.[address] dimension on [address] February 2024
Malignant melanoma
History of pulmonary nodules
History of prostate cancer
2D echocardiogram 03/25/2024:Low normal to mildly reduced LV ejection fraction estimated 50%.� Normal RV size and systolic function.� Mild LVH.� Mild biatrial dilatation.� Mild to moderate MR.� Trileaflet aortic valve without stenosis and no aortic
regurgitation.� Mild to moderate TR.� Estimated pulmonary artery pressure 53 mmHg.� No pericardial effusion.
Cardiac catheterization February 2021: LM: Patent. LAD: LI. Diagonal 160% proximal stenosis. Left circumflex LI. RCA: Mid chronic total occlusion with filling via well-developed right to right and faint [id number] collaterals.
Plan:
- Presented 09/14/20212024 with acute shortness of breath and syncope.
Heart failure with preserved ejection fraction
- proBNP 3830 and chest x-ray showing increased interstitial markings consistent with pulmonary edema
- Maintain IV diuretic. Patient was on Lasix 20 mg as outpatient.
- Still requiring 4 L of oxygen via nasal cannula, wean as able
-Last echo from February 2024 showed low normal EF. Repeat echo on 09/18/2025 after restorationism of sinus rhythm
- Monitor renal function and electrolytes
- Continue losartan, metoprolol and Farxiga
- There may also be component of COPD exacerbation. Consider nebulizers but will defer to primary service
History of paroxysmal atrial fibrillation flutter with previous PVI.
- Currently ventricular paced with controlled ventricular response.
- Noted to have slow atrial flutter/atrial tachycardia in office 09/06/2025. Pacemaker interrogation noted arrhythmia started 09/01/2025 and ongoing by device interrogation 09/15/2025 in emergency department. This may be exacerbating his heart
failure.
- Continue amiodarone 200 mg 3 times daily and attempt of restorationism of sinus rhythm. At discharge would do amiodarone 200 mg twice daily for 1 month then daily. Planning to proceed with cardioversion 09/18/2025
- Continue anticoagulation with Xarelto
Known coronary artery disease with occluded RCA. Continue aggressive medical management with statin, Farxiga, beta-kat.
Patient is scheduled for Watchman implant and repeat PVI/atypical flutter ablation 11/14/2025.
Plan discussed with patient, patient's
HPI 09/16/2025:
Patient is an 80 yo M with PMH of paroxysmal afib and aflutter s/p PVI 10/2019 and redo PVI and RFA 03/2021, SSS s/p PPM, pulm HTN, PVCs, HLD, CAD, DM2, COPD, pulmonary nodules who was recently seen in cardiology office 09/06/2025 and was found to be
in atrial tachycardia/atrial flutter. There was discussion with electrophysiology regarding watchman implant as he had had several falls over the last year as well as undergoing repeat PVI/flutter ablation. Procedures scheduled for November 14,
2025. Patient was at a wedding and was walking into the corporate receptionist when he started to get short of breath. He then had a brief loss of consciousness/slumped over in chair witnessed by family. Incurred no injuries. Brought to emergency department
for evaluation. EKG demonstrated ventricular paced rhythm with frequent PVCs and bigeminy pattern. Troponin was undetectable. proBNP elevated at 3830. Chest x-ray showed mild congestive heart failure with mild interstitial edema. Provided 40 mg
IV Lasix in ED.
Progress Note - Tire Mold Engraver
Subjective
Date of Service: September 17, 2025
Breathing better today
Objective
Labs:
09/17/25 05:17
09/17/25 05:17
Labs
Hgb 12.8 g/dL (13.0-18.0) L 09/17/25 05:17
Hct 37.4 % (39.0-52.0) L 09/17/25 05:17
Plt Count 249 10^3/uL (130-400) 09/17/25 05:17
PT 15.8 Sec (11.4-14.6) H 09/15/25 18:47
INR 1.23 09/15/25 18:47
Sodium 136 mmol/L (135-145) 09/17/25 05:17
Potassium 3.8 mmol/L (3.5-5.1) 09/17/25 05:17
BUN 27 mg/dl (9-20) H 09/17/25 05:17
Creatinine 1.0 mg/dL (0.7-1.3) 09/17/25 05:17
Glucose 137 mg/dl (70-99) H 09/17/25 05:17
Troponins
09/15/25
20:53
Troponin I 0.012
Vital Signs and I&O:
Vital Signs
Temp Pulse Resp BP Pulse Ox
97.3 F 61 16 123/55 97
09/17/25 07:25 09/17/25 08:26 09/17/25 07:28 09/17/25 08:26 09/17/25 07:28
Vital Signs
Temp Pulse Resp BP Pulse Ox
97.3 F 61 16 123/55 97
09/17/25 07:25 09/17/25 08:26 09/17/25 07:28 09/17/25 08:26 09/17/25 07:28
Intake & Output
09/15/25 09/16/25 09/17/25 09/18/25
06:59 06:59 06:59 06:59
Intake Total 768 / 768
Output Total 1680 / 1680 1165 / 1165
Balance -1680 / -1680 -397 / -397
Physical Exam
Physical Exam
����Physical Exam
���������������������General:��no apparent distress, not acutely ill
���������������������������Neck:��supple. no meningeal signs. normal psoterior pharynx
������������������������
���������������������������Heart:��s1/s2 regular rate and rhythm, no murmur. equal radial pulses.
��������������������������Lungs: ��no acute respiratory distress. clear bilaterally
����������������������Abdomen:�normal bowel sounds. not tender. no CVAT
��������������������������Neuro:��alert and oriented. no focal neurological deficits
������������������������������Skin: ��no rash
�����������������������Psychiatric:�well kept. interactive and cooperative
�����������������������Extremities:��no edema. no calf tenderness. negative homans. good distal pulses
��
�
[2025-09-17 11:57] LABS: Glucose - Point of Care 179 mg/dl (70-99)
--- NOTE | 2025-09-17 13:25 | CM ---
Patient seen at bedside
IA completed
Dx: CHF
lives with in 2 story home, 1st floor set up with bedroom/bathroom
PLOF: Independent
DME: Walker, cane, commode, shower seat
Has had [facility] in past & outpatient Pulmonary rehab in past
PT rec Home health
Options reviewed would like [facility]
PCP: Dr. Denys Olson
Pharmacy: [facility]
PLAN: Home with [facility] when stable
[2025-09-17] MEDS: COZAAR PO (13:28)
[2025-09-17] MEDS: NOVOLOG FLEXPEN-LOW RESISTANCE 1 UNITS SC ×2 (13:29→17:14)
[2025-09-17 16:23] LABS: Glucose - Point of Care 171 mg/dl (70-99)
[2025-09-17] MEDS: XARELTO 20 MG PO (17:13)
[2025-09-17] MEDS: LIPITOR 40 MG PO (21:22)
[2025-09-17 21:52] LABS: Glucose - Point of Care 153 mg/dl (70-99)
[2025-09-18 03:07] VITALS: BP 121/60
[2025-09-18 06:00] VITALS: BMI 24.6
[2025-09-18 06:34] LABS: Glucose - Point of Care 117 mg/dl (70-99)
[2025-09-18] MEDS: NOVOLOG FLEXPEN-LOW RESISTANCE SC ×3 (07:24→16:47)
[2025-09-18] MEDS: PULMICORT 0.5 MG INH ×2 (07:35→19:19)
[2025-09-18] MEDS: DUONEB 3 ML INH ×4 (07:35→19:18)
[2025-09-18 08:01] VITALS: BP 128/70
[2025-09-18 08:03] LABS: Hematocrit 41.5 % (39.0-52.0); Hemoglobin 13.8 g/dL (13.0-18.0); Mean Corp Hgb Conc. 33.3 g/dL (33.0-37.0); Mean Corpuscular Volume 93.3 fL (80.0-94.0); Platelet Count 269 10^3/uL (130-400); Red Cell Dist. Width 13.9 % (11.5-14.5)
[2025-09-18 08:15] LABS: Blood Urea Nitrogen 29 mg/dl (9-20); Calcium 9.3 mg/dl (8.4-10.2); Carbon Dioxide 30 mmol/L (22-30); Chloride 104 mmol/L (98-107); Estimated Creatinine Clearance 67 ml/min; Glucose 126 mg/dl (70-99); Potassium 4.2 mmol/L (3.5-5.1); Sodium 142 mmol/L (135-145); eGFR > 60.00
[2025-09-18] MEDS: FARXIGA 10 MG PO (08:27)
[2025-09-18] MEDS: CLARITIN 10 MG PO (08:27)
[2025-09-18] MEDS: TOPROL XL 25 MG PO (08:27)
[2025-09-18] MEDS: SYNTHROID 75 MCG PO (08:27)
[2025-09-18] MEDS: PACERONE 200 MG PO ×3 (08:28→21:37)
[2025-09-18] MEDS: PAXIL 10 MG PO (08:28)
[2025-09-18] MEDS: LASIX 40 MG IV (08:28)
--- NOTE | 2025-09-18 10:01 | W.PN.HOSP.TC ---
Today's Communication/Plan
-
Await cardioversion
Mucinex
Incentive spirometry
Assessment / Plan
Assessment / Plan
Gen-AAOx3, NAD
HEENT-NC, AT, anicteric, clear oral mm
Neck-supple
CV-reg, no M, +S1/S2
Lungs-clear B/L
Abd-soft, NT, ND
Ext-no edema
Musculoskeletal-no cyanosis, clubbing
Skin-warm and dry
Neuro-grossly non-focal
Psych-calm, cooperative
80M w/AF, SSS s/p pacemaker, dCHF, HTN, DM, and emphysema who presents with increased shortness of breath and a syncopal episode.
Acute Hypoxic Respiratory failure
2/2 Acute on Chronic HFpEF
-Consulted Cardiology, d/w Dr. Overton
-Continue Lasix 40mg IV Daily
-Continue GDMT
echo pending
-Monitor Daily Weights
-wean O2 as able
given wheezing, continue duonebs
Syncope
unclear if vagal or due to hypoxia
Orthostatic vitals negative.
amb pulse ox
PT/OT. Per family and cardiology, patient with unsteady gait, per cardiology note concerned pt may need inpatient PM&R consult vs neuro consult. Gait evaluated by PT Per PT wide base gait, a little unsteady but no loss of balance.They rec HHC.
Sick Sinus Syndrome with symptomatic bradycardia s/p Permanent Pacemaker
-Device reports indicated atrial leaf position check failed - Defer to Cardiology
Persistent Atrial Fibrillation
s/p cardioversion 2023
-Continue Xarelto for anticoagulation
-Continue metoprolol for rate control
Amiodarone per cardiology
Awaiting cardioversion today as per cardiology.
Essential Hypertension
BP controlled continue losartan, metoprolol
Hyperlipidemia
-Continue atorvastatin
Diabetes Mellitus, Type II with neuropathy
Hemoglobin A1c 6.7%.
-Hold metformin
-Continue Farxiga
-Monitor sugars and continue coverage insulin
BG controlled
COPD / Emphysema -mild bronchitis, productive cough for 2 days according to patient. Mucinex and incentive spirometer.
Active wheezing noted
DuoNebs as above
Hypothyroidism
-Continue levothyroxine
DVT proph: Xarelto
Code Status: Full Code
Family updated at the bedside.
Anticipated Discharge: Within 24 hours
Subjective/Interval History
-
Date of Service: September 18, 2025
Patient seen and examined. Complaining of cough.
Objective Data
-
Labs:
Laboratory Results
09/18/25
07:22
WBC 8.8
Hgb 13.8
Hct 41.5
Plt Count 269
Sodium 142
Potassium 4.2
Chloride 104
Carbon Dioxide 30
BUN 29 H
Creatinine 0.9
Glucose 126 H
Calcium 9.3
Vital Signs:
Vital Signs
Temp Pulse Resp BP Pulse Ox
97.7 F 69 18 128/70 97
09/18/25 08:01 09/18/25 08:27 09/18/25 08:01 09/18/25 08:27 09/18/25 08:01
I&O
09/17/25 09/18/25 09/19/25
06:59 06:59 06:59
Intake Total 768 / 768 1620 / 1620
Output Total 1165 / 1165 775 / 775
Balance -397 / -397 845 / 845
Review of Systems
-
History Source: Patient
All other systems: Reviewed and negative
--- NOTE | 2025-09-18 10:52 | VNURNOTE ---
Home Health Liaison met with patient and multiple family members at bedside to discuss [facility] nurse/therapy, visits, schedule and homebound status. Patient is agreeable and understands that visits at home will be 2-3 x per week to assess and teach
medical management. Patient is familiar with [facility], has had our services in the past. He confirms that he has a scale at home. Patient is aware that [facility] will contact them for start of care within a few days after discharge from . Provided
contact number for [facility].
[facility] referral accepted in [facility].
[2025-09-18] MEDS: MUCINEX 600 MG PO ×2 (11:06→20:32)
[2025-09-18] MEDS: FEOSOL 325 MG PO (11:06)
[2025-09-18] MEDS: COZAAR 100 MG PO (11:06)
[2025-09-18 12:01] VITALS: BP 98/56
--- NOTE | 2025-09-18 12:18 | W.PN.CARDCBS ---
Today's Communication / Plan
-
Continue Lasix 40 mg IV daily. He was on Lasix 20 mg as outpatient. Possible transition to lasix 40 mg PO daily next 24 hrs.
O2 weaned off.
Pt had echo today Sep 18 Before cardioversion, pending
Cont to monitor daily wts, Is and Os and cr.
Cont GDMT with Losartan, metoprolol and Farxiga
Possible component of COPD exacerbation, defer to primary service.
>History of paroxysmal atrial fibrillation flutter with previous PVI.
Ventrulcar paced but noted to have slow atrial flutter/atrial tachycardia in office 09/06/2025. Pacemaker interrogation noted arrhythmia started 09/01/2025 and ongoing by device interrogation 09/15/2025 in emergency department. This may be
exacerbating his heart failure.
Successful cardioversion Sep 18 2025.
Continue amiodarone 200 mg 3 times daily and attempt of jew of sinus rhythm. At discharge would do amiodarone 200 mg twice daily for 1 month then daily. Planning to proceed with cardioversion 09/18/2025
Continue anticoagulation with Xarelto
Patient is scheduled for Watchman implant and repeat PVI/atypical flutter ablation 11/14/2025.
>Known coronary artery disease with occluded RCA.
Continue aggressive medical management with statin, Farxiga, beta-kat.
Impression / Plan
-
.
Primary Care Doctor: Denys Olson MD
Primary Employee Communications Specialist: Erum Puente DO
Maintenance And Repair Worker: Gordo Overton
Impression:
Presented 09/15/2025 with acute shortness of breath and syncope
Heart failure with preserved ejection fraction
Paroxysmal atrial tachycardia/flutter (noted on device check 09/06/25 in office)
Bradycardia/sick sinus syndrome
Status post Medtronic dual-chamber XRT compatible pacemaker March 2026
Paroxysmal atrial fibrillation and atrial flutter
status post PVI 10/2019
redo PVI/RFA 03/2021
Chronic anticoagulation with Xarelto
Pulmonary hypertension by echo 03/2022 with improvement by echo 08/2022
Ambulatory dysfunction with falls
PVCs
Hyperlipidemia
CAD
Diabetes type 2
PAD
COPD
Abdominal aortic aneurysm Fusiform infrarenal abdominal aortic aneurysm, 2.[address] on [address] February 2024
Malignant melanoma
History of pulmonary nodules
History of prostate cancer
2D echocardiogram 03/25/2024:Low normal to mildly reduced LV ejection fraction estimated 50%.� Normal RV size and systolic function.� Mild LVH.� Mild biatrial dilatation.� Mild to moderate MR.� Trileaflet aortic valve without stenosis and no aortic
regurgitation.� Mild to moderate TR.� Estimated pulmonary artery pressure 53 mmHg.� No pericardial effusion.
Cardiac catheterization February 2021: LM: Patent. LAD: LI. Diagonal 160% proximal stenosis. Left circumflex LI. RCA: Mid chronic total occlusion with filling via well-developed right to right and faint [id number]-by-[id number] collaterals.
Plan:
- Presented 09/14/20212024 with acute shortness of breath and syncope.
>Heart failure with preserved ejection fraction, proBNP 3830 and chest x-ray showing increased interstitial markings consistent with pulmonary edema
Continue Lasix 40 mg IV daily. He was on Lasix 20 mg as outpatient. Possible transition to lasix 40 mg PO daily next 24 hrs.
O2 weaned off.
Pt had echo today Sep 18 Before cardioversion, pending
Cont to monitor daily wts, Is and Os and cr.
Cont GDMT with Losartan, metoprolol and Farxiga
Possible component of COPD exacerbation, defer to primary service.
>History of paroxysmal atrial fibrillation flutter with previous PVI.
Ventrulcar paced but noted to have slow atrial flutter/atrial tachycardia in office 09/06/2025. Pacemaker interrogation noted arrhythmia started 09/01/2025 and ongoing by device interrogation 09/15/2025 in emergency department. This may be
exacerbating his heart failure.
Successful cardioversion Sep 18 2025.
Continue amiodarone 200 mg 3 times daily and attempt of jew of sinus rhythm. At discharge would do amiodarone 200 mg twice daily for 1 month then daily. Planning to proceed with cardioversion 09/18/2025
Continue anticoagulation with Xarelto
Patient is scheduled for Watchman implant and repeat PVI/atypical flutter ablation 11/14/2025.
>Known coronary artery disease with occluded RCA.
Continue aggressive medical management with statin, Farxiga, beta-kat.
Plan discussed with nursing. Pacer interrogated post cardioversion with normal function.
HPI 09/16/2025:
Patient is an 80 yo M with PMH of paroxysmal afib and aflutter s/p PVI 10/2019 and redo PVI and RFA 03/2021, SSS s/p PPM, pulm HTN, PVCs, HLD, CAD, DM2, COPD, pulmonary nodules who was recently seen in cardiology office 09/06/2025 and was found to be
in atrial tachycardia/atrial flutter. There was discussion with electrophysiology regarding watchman implant as he had had several falls over the last year as well as undergoing repeat PVI/flutter ablation. Procedures scheduled for November 14,
2025. Patient was at a wedding and was walking into the striper spray gun when he started to get short of breath. He then had a brief loss of consciousness/slumped over in chair witnessed by family. Incurred no injuries. Brought to emergency department
for evaluation. EKG demonstrated ventricular paced rhythm with frequent PVCs and bigeminy pattern. Troponin was undetectable. proBNP elevated at 3830. Chest x-ray showed mild congestive heart failure with mild interstitial edema. Provided 40 mg
IV Lasix in ED.
Progress Note - Employee Communications Specialist
Subjective
Date of Service: September 18, 2025
Pt seen and examined. No cp.
Objective
Labs:
09/18/25 07:22
09/18/25 07:22
Labs
Hgb 13.8 g/dL (13.0-18.0) 09/18/25 07:22
Hct 41.5 % (39.0-52.0) 09/18/25 07:22
Plt Count 269 10^3/uL (130-400) 09/18/25 07:22
PT 15.8 Sec (11.4-14.6) H 09/15/25 18:47
INR 1.23 09/15/25 18:47
Sodium 142 mmol/L (135-145) 09/18/25 07:22
Potassium 4.2 mmol/L (3.5-5.1) 09/18/25 07:22
BUN 29 mg/dl (9-20) H 09/18/25 07:22
Creatinine 0.9 mg/dL (0.7-1.3) 09/18/25 07:22
Glucose 126 mg/dl (70-99) H 09/18/25 07:22
Troponins
09/15/25
20:53
Troponin I 0.012
Vital Signs and I&O:
Vital Signs
Temp Pulse Resp BP Pulse Ox
97.4 F 65 18 98/56 93
09/18/25 12:01 09/18/25 12:01 09/18/25 12:01 09/18/25 12:01 09/18/25 12:01
Vital Signs
Temp Pulse Resp BP Pulse Ox
97.4 F 65 18 98/56 93
09/18/25 12:01 09/18/25 12:01 09/18/25 12:01 09/18/25 12:01 09/18/25 12:01
Intake & Output
09/16/25 09/17/25 09/18/25 09/19/25
06:59 06:59 06:59 06:59
Intake Total 768 / 768 1620 / 1620
Output Total 1680 / 1680 1165 / 1165 775 / 775
Balance -1680 / -1680 -397 / -397 845 / 845
Physical Exam
Physical Exam
General: No acute distress, AAOX3
Neck: Negative JVD
Heart: Regular, Negative S3 positive S1/S2, Negative S4, No murmur
Lungs: CTA b/l, negative wheezes/rales/rhonchi
Abd: Positive BS, NT/ND, neg rebound/rigidity/guarding
Ext: Negative cyanosis/clubbing/edema
Neuro: nonfocal
--- NOTE | 2025-09-18 13:41 | ITS.CL.CARDI ---
Profile Saw Operator - Cardioversion
Cardioversion
Procedure Report:
Date of Procedure: Sep 18 2025
Procedure: Cardioversion
Indication: Symptomatic atrial fibrillation
Performing Physician: Darwin Velazco DO, FACC
Technique: The patient was brought to the holding area. Signed informed consent was obtained. A time out was called and performed. The patient was anesthetized by the anesthesia service. Anticoagulation status was reviewed and appropriate. R2 pads
were placed anteriorly and posteriorly. A 250 J synchronized biphasic shock restored normal sinus rhythm without significant bradycardia. There were no complications.
Conclusion: Uncomplicated cardioversion from atrial fibrillation to sinus rhythm.
Recommendation: Routine post cardioversion care. Continue termite control service representative anticoagulation.
[2025-09-18 15:01] LABS: Glucose - Point of Care 93 mg/dl (70-99)
[2025-09-18 15:23] VITALS: BP 126/58
[2025-09-18 16:55] LABS: Glucose - Point of Care 220 mg/dl (70-99)
[2025-09-18] MEDS: XARELTO 20 MG PO (17:19)
[2025-09-18 19:56] VITALS: BP 126/57
[2025-09-18] MEDS: LIPITOR 40 MG PO (20:32)
[2025-09-18 21:56] LABS: Glucose - Point of Care 186 mg/dl (70-99)
[2025-09-18 23:16] VITALS: BP 123/58
[2025-09-19 03:25] VITALS: BP 113/55
[2025-09-19 05:09] VITALS: BMI 24.5
[2025-09-19] MEDS: SYNTHROID 75 MCG PO (06:31)
[2025-09-19 07:16] LABS: Glucose - Point of Care 112 mg/dl (70-99)
[2025-09-19] MEDS: PULMICORT 0.5 MG INH (07:32)
[2025-09-19] MEDS: DUONEB 3 ML INH ×2 (07:32→11:28)
[2025-09-19 08:02] VITALS: BP 119/58
[2025-09-19] MEDS: NOVOLOG FLEXPEN-LOW RESISTANCE SC (08:17)
[2025-09-19] MEDS: MUCINEX 600 MG PO (08:19)
[2025-09-19] MEDS: CLARITIN 10 MG PO (08:19)
[2025-09-19] MEDS: PAXIL 10 MG PO (08:19)
[2025-09-19] MEDS: FARXIGA 10 MG PO (08:19)
[2025-09-19] MEDS: PACERONE 200 MG PO (08:19)
[2025-09-19] MEDS: TOPROL XL 25 MG PO (08:19)
[2025-09-19 08:50] LABS: Blood Urea Nitrogen 34 mg/dl (9-20); Calcium 9.5 mg/dl (8.4-10.2); Carbon Dioxide 29 mmol/L (22-30); Chloride 103 mmol/L (98-107); Estimated Creatinine Clearance 55 ml/min; Glucose 118 mg/dl (70-99); Potassium 4.1 mmol/L (3.5-5.1); Sodium 139 mmol/L (135-145); eGFR > 60.00
--- NOTE | 2025-09-19 09:02 | W.PN.HOSP.TC ---
Today's Communication/Plan
-
discharge
Assessment / Plan
Assessment / Plan
Gen-AAOx3, NAD
HEENT-NC, AT, anicteric, clear oral mm
Neck-supple
CV-reg, no M, +S1/S2
Lungs-clear B/L
Abd-soft, NT, ND
Ext-no edema
Musculoskeletal-no cyanosis, clubbing
Skin-warm and dry
Neuro-grossly non-focal
Psych-calm, cooperative
80M w/AF, SSS s/p pacemaker, dCHF, HTN, DM, and emphysema who presents with increased shortness of breath and a syncopal episode.
Acute Hypoxic Respiratory failure
2/2 Acute on Chronic HFpEF
-Consulted Cardiology, d/w Dr. Overton
- Transition to oral Lasix today, discussed with cardiology.
-Continue GDMT
Echocardiogram shows LVEF 55%. Mild concentric LVH. Indeterminate diastolic function. Moderate TR.
-Monitor Daily Weights
Oxygenation improved, now on room air.
Syncope
unclear if vagal or due to hypoxia
Orthostatic vitals negative.
amb pulse ox
Cleared by PT for home health.
Sick Sinus Syndrome with symptomatic bradycardia s/p Permanent Pacemaker
-Device reports indicated atrial leaf position check failed - Defer to Cardiology
Persistent Atrial Fibrillation
s/p cardioversion 2023
-Continue Xarelto for anticoagulation
-Continue metoprolol for rate control
Amiodarone per cardiology
Underwent successful cardioversion 09/18.
Essential Hypertension
BP controlled continue losartan, metoprolol
Hyperlipidemia
-Continue atorvastatin
Diabetes Mellitus, Type II with neuropathy
Hemoglobin A1c 6.7%.
-Hold metformin
-Continue Farxiga
-Monitor sugars and continue coverage insulin
BG controlled
COPD / Emphysema -mild bronchitis, productive cough for 2 days according to patient. Mucinex and incentive spirometer.
Active wheezing noted
DuoNebs as above
Nebulizer prescription provided to patient.
Follow-up with pulmonary after discharge.
Hypothyroidism
-Continue levothyroxine
DVT proph: Xarelto
Code Status: Full Code
Dispo -anticipate discharge today after seen by cardiology. Outpatient follow-up.
Family updated at the bedside.
31 min spent in discharge process.
Anticipated Discharge: Today
Subjective/Interval History
-
Date of Service: September 19, 2025
Patient seen and examined, no complaints.
Objective Data
-
Labs:
Laboratory Results
09/19/25
06:40
Sodium 139
Potassium 4.1
Chloride 103
Carbon Dioxide 29
BUN 34 H
Creatinine 1.1
Glucose 118 H
Calcium 9.5
Vital Signs:
Vital Signs
Temp Pulse Resp BP Pulse Ox
97.7 F 63 17 119/58 95
09/19/25 08:02 09/19/25 08:02 09/19/25 08:02 09/19/25 08:02 09/19/25 08:02
I&O
09/18/25 09/19/25 09/20/25
06:59 06:59 06:59
Intake Total 1620 / 1620 720 / 720
Output Total 775 / 775 450 / 450
Balance 845 / 845 270 / 270
Review of Systems
-
History Source: Patient
All other systems: Reviewed and negative
--- NOTE | 2025-09-19 09:06 | W.PN.CARDCBS ---
Addendum entered and electronically signed by Roberto Garcia MD 09/19/25 10:17:
I saw and examined the patient.
The Application Development Director's note was reviewed and I agree with the note.
Comment: GEN: No distress, awake, Ox3
HEENT: supple, anicteric, mmm
LUNGS: CTA, no wheezes/rales
CV: Reg, S1/S2, 10/31 syst LSB, no gallop
ABD: soft, BS+, NT/ND
EXT: No edema
NEURO: Gross non-focal
SKIN: No rash
PLan:
He remains atrial paced. Continue amiodarone 200 mg p.o. twice daily as outpatient, then decrease to 200 mg daily in 1 month.
Continue Xarelto. Continue Toprol 25 mg daily.
Will discharge on Lasix 40 mg daily. Continue Farxiga and losartan.
He is scheduled for ablation and Watchman in early October
Original Note:
Today's Communication / Plan
-
Outpatient dose of Lasix increased to 40 mg PO daily
New to amiodarone
Cardiology follow-up arranged
Hospital course also reviewed with patient's son at bedside
Impression / Plan
-
Primary Care Doctor: Denys Olson MD
Primary Director Risk: Erum Puente DO
Cloth Wire Weaver: Dr. Gordo Overton
Impression:
Presented 09/15/2025 with acute shortness of breath and syncope
Acute HFpEF
Paroxysmal atrial tachycardia/flutter (noted on device check 09/06/25 in office)
s/p successful CV 09/18/2025
Bradycardia/sick sinus syndrome
Status post [employer] dual-chamber XRT compatible pacemaker March 2026
Paroxysmal atrial fibrillation and atrial flutter
status post PVI 10/2019
redo PVI/RFA 03/2021
Chronic anticoagulation with Xarelto
Pulmonary hypertension by echo 03/2022 with improvement by echo 08/2022
Ambulatory dysfunction with falls
PVCs
Hyperlipidemia
CAD
Diabetes type 2
PAD
COPD
Abdominal aortic aneurysm Fusiform infrarenal abdominal aortic aneurysm, 2.[address] February 2024
Malignant melanoma
History of pulmonary nodules
History of prostate cancer
Cardiac catheterization February 2021: LM: Patent. LAD: LI. Diagonal 160% proximal stenosis. Left circumflex LI. RCA: Mid chronic total occlusion with filling via well-developed right to right and faint [id number] collaterals.
Echo 03/25/2024:Low normal to mildly reduced LV ejection fraction estimated 50%.� Normal RV size and systolic function.� Mild LVH.� Mild biatrial dilatation.� Mild to moderate MR.� Trileaflet aortic valve without stenosis and no aortic
regurgitation.� Mild to moderate TR.� Estimated pulmonary artery pressure 53 mmHg.� No pericardial effusion.
Echo 09/18/25: EF 55%, mild conc LVH, normal RV size and function, mild MR, mod TR with PAP 38 mmHg
Plan:
-Presented 09/14/20212024 with acute shortness of breath and syncope.
-Weight is down at least 6 lbs since admission with Lasix 40 mg IV daily diuresis. Outpatient dose of Lasix increased to 40 mg PO daily, orders placed by me and updated Rx e-scribed to his outpatient pharmacy.
-EF 55% by echo 09/18/25 without significant valve disease
-Acute HF likely related to recurrent atrial arrhythmia.
-Outpatient dose of Toprol XL 25 mg daily was continued
-Outpatient dose of losartan 100 mg daily was continued
-Outpatient dose of Farxiga 10 mg daily was continued
-Patient is not chronically on an aldosterone antagonist and we will hold off on adding at this time as acute HF was likely related to recurrent atrial arrhythmia
-Patient has a known history of paroxysmal A-fib/flutter and was noted to have recurrent paroxysmal atrial tachycardia/flutter on device check in the office 09/06/2025. Patient is scheduled for PVI and watchman implant 11/14/2025.
-Patient had successful CV 09/18/2025 and remains in SR with PVCs on ECG reviewed by me 09/19/2025
-Patient was loaded with amiodarone this admission and received a 1.8 g load as of 09/19/2025 AM. Patient will be discharged home on amiodarone 200 mg BID for 1 month and then reduce to once daily thereafter, updated Rx e-scribed to his outpatient
pharmacy by me.
-Outpatient dose of Xarelto 20 mg daily has been continued throughout admission
-Patient is stable for discharged home from a cardiac standpoint 09/19/2025 and outpatient follow-up has been arranged
HPI 09/16/2025:
Patient is an 80 yo M with PMH of paroxysmal afib and aflutter s/p PVI 10/2019 and redo PVI and RFA 03/2021, SSS s/p PPM, pulm HTN, PVCs, HLD, CAD, DM2, COPD, pulmonary nodules who was recently seen in cardiology office 09/06/2025 and was found to be
in atrial tachycardia/atrial flutter. There was discussion with electrophysiology regarding watchman implant as he had had several falls over the last year as well as undergoing repeat PVI/flutter ablation. Procedures scheduled for November 14
2025. Patient was at a wedding and was walking into the retail department manager when he started to get short of breath. He then had a brief loss of consciousness/slumped over in chair witnessed by family. Incurred no injuries. Brought to emergency department
for evaluation. EKG demonstrated ventricular paced rhythm with frequent PVCs and bigeminy pattern. Troponin was undetectable. proBNP elevated at 3830. Chest x-ray showed mild congestive heart failure with mild interstitial edema. Provided 40 mg
IV Lasix in ED.
Progress Note - Director Risk
Subjective
Date of Service: September 19, 2025
He feels well, but no dramatic symptomatic improvement following successful CV yesterday
Objective
Labs:
09/18/25 07:22
09/19/25 06:40
Labs
Hgb 13.8 g/dL (13.0-18.0) 09/18/25 07:22
Hct 41.5 % (39.0-52.0) 09/18/25 07:22
Plt Count 269 10^3/uL (130-400) 09/18/25 07:22
PT 15.8 Sec (11.4-14.6) H 09/15/25 18:47
INR 1.23 09/15/25 18:47
Sodium 139 mmol/L (135-145) 09/19/25 06:40
Potassium 4.1 mmol/L (3.5-5.1) 09/19/25 06:40
BUN 34 mg/dl (9-20) H 09/19/25 06:40
Creatinine 1.1 mg/dL (0.7-1.3) 09/19/25 06:40
Glucose 118 mg/dl (70-99) H 09/19/25 06:40
Vital Signs and I&O:
Vital Signs
Temp Pulse Resp BP Pulse Ox
97.7 F 63 17 119/58 95
09/19/25 08:02 09/19/25 08:02 09/19/25 08:02 09/19/25 08:02 09/19/25 08:02
Vital Signs
Temp Pulse Resp BP Pulse Ox
97.7 F 63 17 119/58 95
09/19/25 08:02 09/19/25 08:02 09/19/25 08:02 09/19/25 08:02 09/19/25 08:02
Intake & Output
09/17/25 09/18/25 09/19/25 09/20/25
06:59 06:59 06:59 06:59
Intake Total 768 / 768 1620 / 1620 720 / 720
Output Total 1165 / 1165 775 / 775 450 / 450
Balance -397 / -397 845 / 845 270 / 270
Physical Exam
Physical Exam
General: AAO x 3
Heart: AV paced on telemetry. Regular
Lungs: RA. No audible wheeze.
--- NOTE | 2025-09-19 09:36 | W.DS.TRANS ---
DC Summary - Monkey Trainer
-
Discharge Instructions:
Sleep Apnea Risk Intermediate
Discharge Diagnosis/Procedures Acute on chronic heart failure, persistent
atrial fibrillation, syncope
Diet Restrict fluids to 64 oz,2 Gram Sodium
Activity As tolerated
Driving Restrictions No driving
Bathing Restrictions None
Other Services VN
Specialty Instructions Weigh Daily
Instructions: *DCA Heart Failure Instructions
Stand-Alone Forms:
Changes to Home Medications: Yes
Discharge Medications:
DC Medications w/original date entered in [employer]
losartan 50 mg tablet 100 mg PO DAILY@1200 Blood Pressure 12/31/18
multivitamin with folic acid 400 mcg tablet (Tab-A-Cortney) 1 tab PO DAILY Supplement 12/31/18
omeprazole 40 mg capsule,delayed release 40 mg PO DAILY@1200 Gastrointestinal Issue 12/31/18
magnesium oxide 400 mg PO BID Electrolyte Repletion 04/08/21
cholecalciferol (vitamin D3) 25 mcg (1,000 unit) capsule (Vitamin D3) 1,000 unit PO DAILY@1200 Supplement 04/23/21
ferrous sulfate 325 mg (65 mg iron) tablet (iron) 325 mg PO MOWEFR@1200 Supplement 04/23/21
metformin 500 mg tablet 1,000 mg PO BID@0800,1700 Diabetes 04/23/21
rivaroxaban 20 mg tablet (Xarelto) 20 mg PO QPM Blood Clot Prevention/Tx 04/23/21
albuterol sulfate 90 mcg/actuation aerosol inhaler (Ventolin HFA) 1 puff inhalation R Q6HPRN PRN shortness of breath 03/25/24
atorvastatin 40 mg tablet 40 mg PO HS High Cholesterol 03/25/24
paroxetine HCl 10 mg tablet 10 mg PO DAILY Mental Health/Anxiety 04/20/24
dapagliflozin propanediol 10 mg tablet (Farxiga) 10 mg PO DAILY 09/15/25
fluticasone fur. 100 mcg-umeclid 62.5 mcg-vilant 25 mcg inhalat.powder (Trelegy Ellipta) 1 inh inhalation DAILY Lung/Breathing Issues 09/15/25
levothyroxine 75 mcg tablet 75 mcg PO DAILY Thyroid 09/15/25
loratadine 10 mg tablet (Claritin) 10 mg PO DAILY Allergies 09/15/25
metoprolol succinate 25 mg tablet,extended release 24 hr 25 mg PO DAILY Heart Disease/Condition 09/15/25
amiodarone 200 mg tablet 200 mg PO DAILY Arrhythmia #30 tabs 09/19/25
amiodarone 200 mg tablet (Pacerone) 200 mg PO BID Arrhythmia #60 tabs 09/19/25
furosemide 40 mg tablet 40 mg PO DAILY Heart Failure #90 tabs 09/19/25
guaifenesin 600 mg tablet, extended release 12 hr 600 mg PO Q12 #20 tabs 09/19/25
ipratropium 0.5 mg-albuterol 3 mg (2.5 mg base)/3 mL nebulization soln 3 ml inhalation R Q4HPRN PRN shortness of breath/wheeze #90 mL 09/19/25
Home Medication Changes
Furosemide increased to 40 mg daily.
Pending Results: No
[2025-09-19] MEDS: LASIX IV (10:06)
[2025-09-19] MEDS: LASIX 40 MG PO (10:09)
[2025-09-19 11:09] VITALS: BP 101/55
--- NOTE | 2025-09-19 11:18 | CM ---
MD entered order for discharge.
Spoke with pt son and in room.
Pt agreed with dc today.
IMM reviewed agreed by pt .IMM signed on chart
Offered VN he declined.
[facility]An Home no needs
--- NOTE | 2025-09-19 11:26 | CM ---
MD entered order for discharge.
Spoke with pt son and in room.
Pt agreed with dc today.
IMM reviewed agreed by pt .IMM signed on chart
Offered VN he requested [facility] Home with [facility]
--- NOTE | 2025-09-20 10:27 | W.HF.CON ---
Heart Failure
- LV Function
Left ventricular function study result: LV Ejection fraction >/= 50%
Ejection Fraction Percentage: 55
- ARNI
Patient already on ARNI: No
Heart Failure ARNI Not Indicated: LV Ejection Fraction >/= 40%
- ACEI/ARB
Patient already on ACEI/ARB: Yes
- Beta Nella
Patient already on Evidence Based Beta Nella: Yes
- Mineralocorticord Receptor Antagonist
Patient already on MRA: No
Heart Failure MRA Not Indicated: LV Ejection Fraction > 40%
- SGLT-2 Inhibitor
Patient already on SGLT-2 Inhibitor: Yes
- Afib Anticoagulation
Patient already on Anticoagulation for Afib: Yes
- NYHA CHF Classification
NYHA CHF Classification Level: Class III - Symptoms w/ min exertion, interferes w/ nml daily activity
- ACC/AHA Stage
ACC/AHA Stage: Stage C: Symptomatic Heart Failure
== END 2025-09-19 12:00 | disposition home health service (06) | DRG 291 ==
LOC: 4 EAST ACU 23:35
PROVIDERS: Emergency Medicine; Internal Medicine; Nuclear Medicine Nuclear Cardiology; Physician Assistant; Physician Assistant Medical; ADMITTING PHYSICIAN Internal Medicine; ATTENDING PHYSICIAN Hospitalist; EMERGENCY PHYSICIAN Student in an Organized Health Care Education/Training Program; FAMILY PHYSICIAN Family Medicine; OTHER PHYSICIAN Internal Medicine Cardiovascular Disease
PROC: 5A2204Z Restoration of Cardiac Rhythm, Single (ICD-10-PCS; 2025-09-18)
DX: I11.0 Hypertensive heart disease with heart failure (principal); I50.31 Acute diastolic (congestive) heart failure; I50.33 Acute on chronic diastolic (congestive) heart failure; J96.01 Acute respiratory failure with hypoxia; I48.19 Other persistent atrial fibrillation; I47.19 Other supraventricular tachycardia; I48.92 Unspecified atrial flutter; Z87.891 Personal history of nicotine dependence; Z11.52 Encounter for screening for COVID-19; E11.40 Type 2 diabetes mellitus with diabetic neuropathy, unspecified; E78.00 Pure hypercholesterolemia, unspecified; I27.20 Pulmonary hypertension, unspecified; Z79.01 Long term (current) use of anticoagulants; I49.5 Sick sinus syndrome; Z79.899 Other long term (current) drug therapy
CPT/HCPCS: 71046; 80048; 80053; 82962; 83036; 83735; 83880; 84443; 84484; 85025; 85027; 85610; 87502; 87811; 92960; 93005; 93288; 93308; 93321; 93325; 94640; 96374; 97162; 97166; 99285